=== PATIENT | female | born 1960 | race Caucasian/White ===

== ENCOUNTER 2020-07-13 14:40 | Outpatient (CLI) | payer OTHER, SELFPAY ==
--- NOTE | 2020-07-13 14:41 | MM_ITS ---
WS: [id number] SCREENING DIGITAL MAMMOGRAM WITH CAD HISTORY: SCREENING COMPARISON: 06/09/2019 and 06/08/2018 Bilateral CC and MLO views submitted. Computer aided detection analyzed. Breast composition: There are scattered areas of fibroglandular density. No suspicious masses, microc alcifications or architectural distortion. MM/[id number] IMPRESSION: BI-RADS: 1-Negative FOLLOW UP: 1 Year Follow-up
== END 2020-07-13 14:41 | disposition home or self-care (01) ==
LOC: RADSHAW 14:40
PROVIDERS: PCP Physician Assistant; Visit Provider Obstetrics & Gynecology
DX: Z12.31 Encounter for screening mammogram for malignant neoplasm of breast (principal)
CPT/HCPCS: 77067

== ENCOUNTER 2021-07-31 15:15 | Outpatient (CLI) | payer OTHER, SELFPAY ==
--- NOTE | 2021-07-31 15:19 | MM_ITS ---
WS: [id number] BILATERAL DIGITAL SCREENING MAMMOGRAPHY WITH CAD CLINICAL INFORMATION: SCREENING HISTORY: Screening mammogram. No current complaints. COMPARISON: July 13, 2020 TECHNIQUE: Bilateral CC and MLO views. FINDINGS: Scattered fibroglandular densities bilaterally. No suspicious focal mass, asymmetry, calcifications, or architectural distortion. No evidence of malignancy. A few stable secretory calcifications right b reast. A few punctate calcifications right breast. MM/[place] [id number] IMPRESSION: BI-RADS: 2-Benign FOLLOW UP: 1 Year Follow-up Recommend return to annual screening mammography.
== END 2021-07-31 15:16 | disposition home or self-care (01) ==
LOC: RADSHAW 15:18
PROVIDERS: PCP Physician Assistant; Visit Provider Physician Assistant
DX: Z12.31 Encounter for screening mammogram for malignant neoplasm of breast (principal)
CPT/HCPCS: 77067

== ENCOUNTER → 2021-11-13 15:04 | Outpatient (BNVA) | payer OTHER, SELFPAY | PROVIDERS: PCP Physician Assistant; Visit Provider Nurse Practitioner Women's Health | DX: Z01.419 Encounter for gynecological examination (general) (routine) without abnormal findings (principal) | CPT/HCPCS: 87624 ==

== ENCOUNTER 2022-02-05 11:17 | Outpatient (CLI) | payer OTHER, SELFPAY ==
[2022-02-05 13:18] LABS: Basophils % 0.4 %; Eosinophils # 0.1 10^3/uL (0.0-0.8); Eosinophils % 2.3 %; Hematocrit 43.7 % (37.0-47.0); Hemoglobin 14.3 g/dL (11.5-15.3); Lymphocytes % 21.9 %; Mean Corpuscular HGB Conc 32.7 g/dL (30.0-36.0); Mean Corpuscular Hemoglobin 30.6 pg (28.0-34.0); Mean Corpuscular Volume 93.6 fl (81-99); Mean Platelet Volume 12.1 fL (7.4-10.4); Monocytes # 0.4 10^3/uL (0.2-0.9); Monocytes % 8.9 %; Neutrophils # 3.11 10^3/uL (1.8-7.7); Neutrophils % 66.3 %; Nucleated Red Blood Cells % 0 %; Platelet Count 88 10^3/cmm (130-400); Red Blood Count 4.67 10^6/uL (4.1-5.3); Red Cell Distribution Width 13.9 % (12.1-15.1); White Blood Count 4.7 10^3/uL (4.0-10.0)
[2022-02-05 13:49] LABS: Alanine Aminotransferase 63 U/L (0-33); Albumin Level 4.8 g/dL (3.5-5.2); Alkaline Phosphatase 57 IU/L (35-105); Anion Gap 16.7 (5-19); Aspartate Amino Transferase 69 U/L (0-32); Blood Urea Nitrogen 10 mg/dL (6-20); Calcium 10.4 mg/dL (8.5-10.5); Carbon Dioxide 21 mmol/L (22-29); Chloride 106 mmol/L (98-107); Globulin 3.2 g/dL (1.3-4.6); Glomerular Filtration Rate 126.3 mL/min (90-130); Glucose 94 mg/dL (65-115); Lactate Dehydrogenase 188 U/L (135-214); Osmolality Calculated 289 mOsm/kg (285-295); Potassium 3.7 mmol/L (3.5-5.1); Sodium 140 mmol/L (136-145); Thyroid Stimulating Hormone 1.23 uIU/mL (0.27-4.20); Total Bilirubin 0.5 mg/dL (0.15-1.2); Vitamin B12 454 pg/mL (232-1245)
[2022-02-05 13:55] LABS: Erythrocyte Sedimentation Rate 18 mm/hr (0-15); LAB Peripheral Smear Sent for Review
[2022-02-05 13:59] LABS: Hepatitis A Antibody IgM Non-Reactive (Nonreactive); Hepatitis B Core AB, Total Non-Reactive (Nonreactive); Hepatitis B Surface AB 3.5 (11.5-1000); Hepatitis B Surface Antigen Non-Reactive (Nonreactive); Hepatitis C Virus Antibody Non-Reactive (Nonreactive)
--- NOTE | 2022-02-05 15:54 | ONC CON_ITS ---
Dr. Montero New Patient Note Patient: Catina Reeves Unit #: [id number]: [id number] Dicatated By: Jun Montero M.D.Date of Visit: Feb 05, 2022 Onc MED New Patient/Consult Referring Physician: Keya HERRING Chief Complaint: Thrombocytopenia. History of Present Illness: This is a 61-year-old woman with mild thrombocytopenia. She has hypertension and hyperlipidemia. She has been in good general health. She recently had a follow-up visit with Avis Dior at [facility]. Her laboratory studies from 01/23/2022 included CBC which showed normal hemoglobin at 14.5 g with hematocrit 43.3%. The white blood cell count was borderline low at 4100. The differential showed 63% granulocytes, 26% lymphocytes, and 7% monocytes. The platelet count was mildly decreased at 82,000. Comprehensive metabolic profile showed normal renal function with BUN 11.0 and creatinine 0.6 mg/dL. The SGOT and SGPT were mildly elevated at 60/46 U/L and 73/69 U/L respectively. The alkaline phosphatase was normal at 52.0 U/L and the bilirubin was normal at 0.7 mg/dL. She says she feels fine, though she has been a little tired. She still has normal activity. ECOG score is 0. Her appetite has been good and her weight has been stable. She has not had fever or night sweats. She does have hot flashes. She has not had sore mouth or throat. She occasionally has cough in the morning. She does not complain of shortness of breath or chest pain. She has no GI complaints other than occasional heartburn, which he manages with Tums. She has some mild stress incontinence. She sometimes has joint pain, mainly in her hands or knees. She recently has been treated for tendinitis in the right arm and hand. She does not complain of headache or dizziness, and she has no focal neurologic symptoms. She has had no abnormal bruising or other bleeding manifestations. Past Medical History: Her medical history includes degenerative arthritis, hyperlipidemia, and hypertension. Past Surgical History: Her surgical/procedural history includes tonsillectomy, colonoscopy in 2017, bilateral carpal tunnel release in 2016, left salpingoopherectomy in 2000, and uterine myomectomy in 1998. Medications: Lipitor 1 Tablet (of 40 mg) Oral at bedtime, Lisinopril-hydroCHLOROthiazide 1 Tablet (of 20-12.5 mg) Oral daily, Meloxicam 1 Tablet (of 15 mg) Oral daily, Prempro 1 Tablet (of 0.625-2.5 mg) Oral daily Allergies: Erythromycin, Penicillins, Percocet, predniSONE, and Sulfa Antibiotics. Social History: Ms. Reeves is . Ms. Reeves has never smoked. She drinks occasionally. 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. She is a non-smoker. She has had just very occasional alcohol use. Family History: Father had colon cancer. He at age 83, apparently from a preoperative blood clot to his brain. Mother at age 81, possibly of colon cancer, though it was not determined with certainty. A sister had diabetes and of heart attack. Review Of Symptoms: Constitutional - She feels fine, though she is a little tired. She has normal activity. Appetite is good and weight is stable. No fever or night sweats. She has hot flashes. ECOG score is 0, Eyes - No change in vision, ENMT - No sinus congestion/drainage. No mouth sores. No sore throat or difficulty swallowing, Hematologic/Lymphatic - No abnormal bruising or bleeding, Respiratory - No shortness of breath. She occasionally has cough in the morning. No pleuritic pain or hemoptysis, Cardiovascular - No angina pain. No palpitations, Gastrointestinal - No nausea or vomiting. She occasionally has heartburn. No diarrhea or constipation. No blood in the stool or black stools, Genitourinary (F) - No dysuria or hematuria. No urinary frequency or urgency. She has mild stress incontinence, Musculoskeletal - She has mild joint pain, mainly in the hands. She recently had treatment for tendinitis in the right arm and hand, Integumentary - No skin rash or other skin changes, Neurologic - No headache or dizziness. No numbness or tingling. No other focal neurologic symptoms, Psychiatric - No anxiety or depression. No insomnia. Vital Signs: Performed on Feb 05, 2022 15:47: 3, 0, 38.12 (HIGH), 2.15 sq.m, 66 in, 96 %, 82 /min, 16 /min, 189/78 mm(hg) (HIGH), 98.5 F, and 236.2 lbs (HIGH). Physical Examination: Constitutional - She appears to be in good general health, Eyes - Sclerae nonicteric. Conjunctivae clear, ENMT - No lesions noted in the oral cavity, Neck - No mass or thyromegaly, Hematologic/Lymphatic - No cervical, clavicular, or axillary adenopathy, Respiratory - Lungs are clear with good air movement bilaterally, Cardiovascular - Heart rhythm is regular. There is a II/ systolic murmur. There is no gallop or rub noted, Abdomen - Mildly distended but soft. Liver and spleen do not appear enlarged. There is no abdominal mass or ascites noted and there is no inguinal adenopathy, Back/Spine - No spine or CVA tenderness noted, Extremities - No edema. Pedal pulses are palpable bilaterally, Integumentary - No rashes. No suspicious skin lesions noted, Neurologic - No focal neurologic deficits noted. Problem List: 1. Mild thrombocytopenia. Etiology uncertain. 2. Hypertension. 3. Hyperlipidemia. 4. Mild degenerative joint disease. Problems Addressed with this Encounter and Plan: Patient with mild thrombocytopenia. At this point the cause is uncertain. Platelet clumping would first need to be excluded. If she is confirmed to have thrombocytopenia, my main concern with her liver enzymes being mildly elevated is the possibility of underlying liver disease/hypersplenism. Low-grade autoimmune thrombocytopenia is another possibility and an early stage of myelodysplastic syndrome would also have to be considered. Medication induced thrombocytopenia is unlikely, but possible. The laboratory findings reviewed with the patient and we discussed the clinical implications. She will have additional laboratory studies today which will include CBC, comprehensive metabolic profile, sed rate, DONALD screen, TSH level, LDH level, B12 level, and a viral hepatitis profile. I will review the blood smear. She will have further evaluation as indicated. Signed By: Jun Montero M.D. <<Signature on File>>
[2022-02-06 16:27] LABS: Anti-Nuclear Antibody Screen NEGATIVE (NEGATIVE)
== END 2022-02-05 11:18 | disposition home or self-care (01) ==
PROVIDERS: PCP Physician Assistant; Visit Provider Internal Medicine Medical Oncology
DX: D69.6 Thrombocytopenia, unspecified (principal); I10 Essential (primary) hypertension; E78.5 Hyperlipidemia, unspecified; Z79.899 Other long term (current) drug therapy
CPT/HCPCS: 36415; 80053; 82607; 83615; 84443; 85025; 85651; 86038; 86705; 86706; 86709; 86803; 87340

== ENCOUNTER 2022-03-03 11:56 | Outpatient (CLI) | payer OTHER, SELFPAY ==
--- NOTE | 2022-03-03 12:09 | CT_ITS ---
WS: [id number] CT ABDOMEN PELVIS TECHNIQUE: Contrast-enhanced CT of the abdomen and pelvis with coronal and sagittal reformatted image s. CLINICAL INFORMATION: THROMBOCYTOPENIA COMPARISON: None. DLP: 1516.[address] scans at [facility] use at least one of these dose optimization techniques: automated e xposure control; mA and/or kV adjustment per patient size (includes targeted exams where dose is matc hed to clinical indication); or iterative reconstruction. FINDINGS: Hepatomegaly with diffuse fatty infiltration liver. Normal portal vein and splenic vein. Splenomegaly measuring 15.6 cm [id number]. Small esophageal hiatal hernia. Lung bases are well aerated. Small o pacity RIGHT lower lobe measuring 5.6 mm. Adrenal glands are normal. Normal renal parenchymal enhance ment. No hydronephrosis. Normal pancreatic parenchymal enhancement. Gallbladder appears normal. Tiny bilateral renal cysts. Tiny enhancing exophytic lesion lower pole LEFT kidney too small to characteri ze but not definitely cystic measuring 9 mm. No abdominal or pelvic lymphadenopathy. Normal caliber abdominal aorta. Celiac and SMA are patent. Disc space narrowing L5-S1. Normal sigmoid colon. No evidence of high-grade small or large bowel obstruction. Enlarged lobulated fibroid uterus measuring 11.5 x 9.0 x 8.1 CM. Compression along the dorsal aspect of the bladder. CT/CT abdomen pelvis w con* [id number] IMPRESSION: 1. Hepatomegaly with diffuse fatty infiltration of the liver 2. Splenomegaly measuring 15.6 cm [id number].. 3. Small esophageal hiatal hernia. 4. Heterogeneously enhancing exophytic lesion lower pole LEFT kidney measuring 9.6 mm too small to definitively characterize. Recommend 6 month interval foll ow-up with contrast-enhanced CT abdomen pelvis. 5. Lobulated markedly enlarged fibroid uterus with multiple calcified fibroids . Compression on the adjacent dorsal aspect of the bladder. 6. Small opacity RIGHT lower lobe measuring 5.6 mm. Recommend [address] follow-up.
[2022-03-03] MEDS: iohexol 300 mg/mL 50 mL Btl PO (12:16)
[2022-03-03] MEDS: iohexol 300 mg/mL 100 mL Btl IV (12:17)
== END 2022-03-03 11:57 | disposition home or self-care (01) ==
PROVIDERS: PCP Physician Assistant; Visit Provider Internal Medicine Medical Oncology
DX: D69.6 Thrombocytopenia, unspecified (principal); R16.0 Hepatomegaly, not elsewhere classified; K76.0 Fatty (change of) liver, not elsewhere classified; R16.1 Splenomegaly, not elsewhere classified; K44.9 Diaphragmatic hernia without obstruction or gangrene; D25.9 Leiomyoma of uterus, unspecified
CPT/HCPCS: 74177

== ENCOUNTER 2022-08-05 07:55 | Outpatient (CLI) | payer SELFPAY ==
[2022-08-05 08:41] LABS: Basophils % 0.5 %; Eosinophils # 0.1 10^3/uL (0.0-0.8); Eosinophils % 2.8 %; HF Add Manual Diff No; Hematocrit 43.8 % (37.0-47.0); Hemoglobin 14.4 g/dL (11.5-15.3); Lymphocytes % 26.7 %; Mean Corpuscular HGB Conc 32.9 g/dL (30.0-36.0); Mean Corpuscular Hemoglobin 31.5 pg (28.0-34.0); Mean Corpuscular Volume 95.8 fl (81-99); Mean Platelet Volume 12.7 fL (7.4-10.4); Monocytes # 0.3 10^3/uL (0.2-0.9); Monocytes % 7.4 %; Neutrophils # 2.43 10^3/uL (1.8-7.7); Neutrophils % 62.3 %; Nucleated Red Blood Cells % 0 %; Platelet Count 69 10^3/cmm (130-400); Red Blood Count 4.57 10^6/uL (4.1-5.3); White Blood Count 3.9 10^3/uL (4.0-10.0)
[2022-08-05 08:57] LABS: Estmated Average Glucose 120; Hemoglobin A1C 5.8 % (4.0-6.0)
[2022-08-05 09:24] LABS: Alanine Aminotransferase 28 U/L (0-33); Albumin Level 4.3 g/dL (3.5-5.2); Alkaline Phosphatase 50 U/L (35-105); Anion Gap 13.3 (5-19); Aspartate Amino Transferase 31 U/L (0-32); Blood Urea Nitrogen 12 mg/dL (6-20); Calcium 9.3 mg/dL (8.5-10.5); Carbon Dioxide 22 mmol/L (22-29); Chloride 109 mmol/L (98-107); Chol HDL Ratio 3.86 mg/dL (0.0-4.40); Cholesterol 143 mg/dL (0-200); Globulin 2.6 g/dL (1.3-4.6); Glomerular Filtration Rate 102.3 mL/min (90-130); Glucose 90 mg/dL (65-115); HDL Cholesterol 37 mg/dL (60-100); LDL Cholesterol Calculated 85 mg/dL (50-129); Osmolality Calculated 289 mOsm/kg (285-295); Potassium 4.3 mmol/L (3.5-5.1); Sodium 140 mmol/L (136-145); Total Bilirubin 0.6 mg/dL (0.15-1.2); Total Protein 6.9 g/dL (6.6-8.7); Triglycerides 104 mg/dL (0-150)
[2022-08-05 09:25] LABS: 25 Hydroxy Vitamin D 30 ng/mL (30-100); Thyroid Stimulating Hormone 1.46 uIU/mL (0.27-4.20)
== END 2022-08-05 07:56 | disposition home or self-care (01) ==
PROVIDERS: Visit Provider Dermatology
DX: Z01.89 Encounter for other specified special examinations (principal)
CPT/HCPCS: 36415

== ENCOUNTER 2022-08-27 15:18 | Outpatient (CLI) | payer OTHER, SELFPAY ==
--- NOTE | 2022-08-27 15:30 | MM_ITS ---
WS: [id number] BILATERAL 3D TOMOSYNTHESIS DIGITAL SCREENING MAMMOGRAPHY WITH CAD CLINICAL INFORMATION: SCREENING HISTORY: Screening mammogram. No current complaints. COMPARISON: July 31, 2021 TECHNIQUE: Bilateral CC and MLO views. FINDINGS: Scattered fibroglandular densities bilaterally. No suspicious focal mass, asymmetry, calcifications, or architectural distortion. No evidence of malignancy. Incidental punctate calcifications RIGHT grea ter than LEFT. MM/[place] [id number] IMPRESSION: BI-RADS: 2-Benign FOLLOW UP: 1 Year Follow-up Recommend return to annual screening mammography.
== END 2022-08-27 15:19 | disposition home or self-care (01) ==
LOC: RAD 15:22
PROVIDERS: PCP Physician Assistant; Visit Provider Nurse Practitioner Women's Health
DX: Z12.31 Encounter for screening mammogram for malignant neoplasm of breast (principal)
CPT/HCPCS: 77063; 77067

== ENCOUNTER 2022-09-19 11:15 | Outpatient (RCR) | payer OTHER, SELFPAY | END 2022-09-22 23:59 | disposition home or self-care (01) | LOC: SPT 11:15 | PROVIDERS: PCP Physician Assistant; Visit Provider Physician Assistant | DX: M25.511 Pain in right shoulder (principal); M75.101 Unspecified rotator cuff tear or rupture of right shoulder, not specified as traumatic | CPT/HCPCS: 97161 ==

== ENCOUNTER 2022-09-23 06:00 | Outpatient (RCR) | payer OTHER, SELFPAY | END 2022-10-22 23:59 | disposition home or self-care (01) | LOC: SPT 06:00 | PROVIDERS: PCP Physician Assistant; Visit Provider Physician Assistant | DX: M75.81 Other shoulder lesions, right shoulder (principal) | CPT/HCPCS: 97110 ==

== ENCOUNTER 2022-10-23 06:00 | Outpatient (RCR) | payer OTHER, SELFPAY | END 2022-11-22 23:59 | disposition home or self-care (01) | LOC: SPT 06:00 | PROVIDERS: PCP Physician Assistant; Visit Provider Physician Assistant | DX: M75.81 Other shoulder lesions, right shoulder (principal); M75.101 Unspecified rotator cuff tear or rupture of right shoulder, not specified as traumatic | CPT/HCPCS: 97110 ==

== ENCOUNTER 2022-10-27 02:04 | Emergency (ER) | payer OTHER, SELFPAY ==
[2022-10-27 02:06] VITALS: BP 163/89; PULSE 59; RESP 16; TEMP 36.5; O2SAT 97
--- NOTE | 2022-10-27 02:18 | CTR_ITS ---
PROCEDURE INFORMATION: Exam: CT Abdomen And Pelvis With Contrast Exam date and time: 10/27/2022 3:02 AM Age: 62 years old Clinical indication: Abdominal pain; Localized; Left lower quadrant (llq); Prior surgery; Surgery type: Left ovary, uterine fibroid; Additional info: Llq abd pain TECHNIQUE: Imaging protocol: Computed tomography of the abdomen and pelvis with contrast. Radiation optimization: All CT scans at this facility use at least one of these dose optimization techniques: automated exposure control; mA and/or kV adjustment per patient size (includes targeted exams where dose is matched to clinical indication); or iterative reconstruction. Contrast material: OMNI 350; Contrast volume: 100 ml; Contrast route: INTRAVENOUS (IV); COMPARISON: CT abdomen pelvis w con* [id number] 03/03/2022 1:01 PM RADIATION DOSE METRICS: Total DLP (mGy-cm): 631.51 FINDINGS: Liver: Normal. No mass. Gallbladder and bile ducts: Enlarged greater than or equal to 5.0 cm transverse diameter gallbladder consistent with gallbladder hydrops. Pancreas: Normal. No ductal dilation. Spleen: Normal. No splenomegaly. Adrenal glands: Normal. No mass. Kidneys and ureters: Normal. No hydronephrosis. Stomach and bowel: Unremarkable. No obstruction. No mucosal thickening. Appendix: Normal appendix. Intraperitoneal space: Unremarkable. No free air. No significant fluid collection. Vasculature: Calcification of the abdominal aorta and/or iliac arteries consistent with atherosclerotic vessel disease. Lymph nodes: Unremarkable. No enlarged lymph nodes. Urinary bladder: Unremarkable as visualized. Reproductive: One or more calcified uterine fibroids. Enlarged uterus with multiple partially calcified nodular uterine lesions most consistent with uterine fibroids. Bones/joints: Unremarkable. No acute fracture. Soft tissues: Unremarkable. CT/CT abdomen pelvis w con* [id number] IMPRESSION: 1. Enlarged uterus with multiple partially calcified nodular uterine lesions most consistent with uterine fibroids. 2. Enlarged greater than or equal to 5.0 cm transverse diameter gallbladder consistent with gallbladder hydrops.
--- NOTE | 2022-10-27 02:23 | USR_ITS ---
PROCEDURE INFORMATION: Exam: US Nonobstetric Pelvis; Complete Exam date and time: 10/27/2022 2:36 AM Age: 62 years old Clinical indication: Pelvic pain; Prior surgery; Surgery date: 6+ months; Surgery type: Lt oophorectomy; Additional info: Left pelvic pain, vaginal bleeding TECHNIQUE: Imaging protocol: Transabdominal pelvic nonobstetric ultrasound. Complete exam. Real time ultrasound with image documentation. COMPARISON: CT abdomen pelvis w con* [id number] 03/03/2022 1:01 PM FINDINGS: Uterus: Enlarged 16.4 x 3.0 x 8.3 cm uterus. Multiple uterine fibroids some of which appear calcified with posterior shadowing. Endometrial stripe not visualized because of multiple uterine fibroids, some of which appear submucosal. Right ovary/adnexa: 1.8 x 1.7 x 1.3 cm right ovary with perfusion. Left ovary/adnexa: Absent left ovary consistent with left oophorectomy. Intraperitoneal space: No intraperitoneal fluid. Urinary bladder: Normal. US/US pelvic complete* [id number] IMPRESSION: 1. Enlarged 16.4 x 3.0 x 8.3 cm uterus. 2. Multiple uterine fibroids some of which appear calcified with posterior shadowing. 3. Absent left ovary consistent with left oophorectomy. 4. 1.8 x 1.7 x 1.3 cm right ovary with perfusion.
[2022-10-27] MEDS: morphine 4 mg/mL SDV 1 mL IVP (02:47)
[2022-10-27] MEDS: ondansetron 2 mg/ML SDV 2 mL 4 MG IVP (02:47)
[2022-10-27] MEDS: sodium chloride 0.9% 1,000 ML 999 ML IV (02:48)
[2022-10-27 02:50] LABS: Basophils % 0.3 %; Eosinophils # 0.1 10^3/uL (0.0-0.8); Eosinophils % 1.6 %; Hematocrit 45.4 % (37.0-47.0); Hemoglobin 14.7 g/dL (11.5-15.3); Lymphocytes # 1.1 10^3/uL (0.8-4.8); Lymphocytes % 16.4 %; Mean Corpuscular HGB Conc 32.4 g/dL (30.0-36.0); Mean Corpuscular Hemoglobin 31.3 pg (28.0-34.0); Mean Corpuscular Volume 96.6 fl (81-99); Mean Platelet Volume 11.5 fL (7.4-10.4); Monocytes # 0.4 10^3/uL (0.2-0.9); Monocytes % 5.6 %; Neutrophils # 5.25 10^3/uL (1.8-7.7); Nucleated Red Blood Cells % 0 %; Platelet Count 98 10^3/cmm (130-400); Red Cell Distribution Width 12.7 % (12.1-15.1); White Blood Count 6.9 10^3/uL (4.0-10.0)
--- NOTE | 2022-10-27 02:56 | ED_ITS ---
HPI - Abdominal Pain General: Chief Complaint: Abdominal Pain Stated Complaint: lower abdomen pain Time Seen by Provider: 10/27/22 02:16 History of Present Illness: 62-year-old female with a history of hypertension. She presents with left-sided pelvic pain and an onset of vaginal bleeding. She has noticed this over the past 24 hours or so. She had not had any vaginal bleeding or. Bleeding for several years prior to this. No other discharge. She has been told in the past that she has endometrial disease. MD elicited complaint: abdominal pain Pertinent past history: other Onset (ago): hour(s) Pain Consistency: constant Location: Pelvis (Left) Severity: moderate Quality: cramping and stabbing Radiation: L flank Migration to: no migration Associated Symptoms: Denies change in stool character, chills, diarrhea, dysuria, fever(s), hematochezia, hematuria, loose stools and vomiting Review of Systems Const: Denies: fever(s) or chills Eyes: Denies: change in vision Card: Denies: chest pain or palpitations Resp: Denies: dyspnea, productive cough, non-productive cough or wheezing GI: Denies: vomiting, diarrhea, change in stool character or hematochezia : Reports: vaginal bleeding; Denies: difficulty voiding, dysuria, hematuria or vaginal discharge Skin/Breast: Denies: rash Neuro: Denies: headache(s), weakness in extremities, dizziness or confusion PFSH ED 2 PFSH: Medical History Hyperlipemia Hypertension, benign No pertinent past medical history neghx: dm,thyroid,dvt/pe PCP: Avis Dior Surgical History History of carpal tunnel surgery of left wrist (~08/2016) History of carpal tunnel surgery of right wrist (~10/2012) History of left salpingo-oophorectomy (01/18/02) Laparoscopic with extensive ROMERO. Performed by Dr. Carreno at [facility] in [place], [place]. S/P myomectomy (07/15/99) Abdominal. Performed by Dr. Guzman at [facility] in [place], [place]. 3 fibroids removed (largest 10 cm). S/P tonsillectomy and adenoidectomy (~1968) Family History Sister Diabetes Hypertension Thyroid disease Heart disease Mother Hypertension Thyroid disease Colon cancer dx age 82 Grandmother Ovarian cancer Maternal---dx age unknown Breast cancer Maternal--dx age unknown Uterine cancer Maternal--dx age unknown Father Colon cancer dx age 85 Heart disease Family/Other Breast cancer Paternal Aunt--dx age unknown Denies family history of Stroke Social History Smoking and tobacco status: never smoked Physical Exam Const: COMMON NORMALS: no acute distress GENERAL APPEARANCE: cooperative; not ill appearing and not frail appearing HENMT: COMMON NORMALS: normocephalic, atraumatic and Normal external nose present HEAD & SCALP: normocephalic and atraumatic FACE & SINUS: normal facial exam and face symmetric NOSE: Normal external nose present Eye: COMMON NORMALS: Equal, round and reactive pupils present and EOMs intact bilaterally PUPIL: Yes Equal, round and reactive pupils present Neck/C-Spine: GENERAL: Yes trachea midline Chest: CHEST: Yes Symmetrical chest wall rise Resp: COMMON NORMALS: normal respiratory effort, No retractions, No use of a ccessory muscles and clear to auscultation bilaterally AUSCULTATION: clear to auscultation bilaterally Cardio: COMMON NORMALS: regular rate and regular rhythm RATE: regular rate RHYTHM: regular rhythm GI: COMMON NORMALS: Normal to inspection, nondistended, normoactive bowel sounds present PALPATION: Yes Tenderness to palpation present (GI) Details: LLQ Extremity: COMMON NORMALS: no pedal edema Neuro: IRMA COMA SCALE: document GCS findings [place] coma scale eye opening: Spontaneous [place] coma scale verbal response: Orientated [place] coma scale motor response: Obey commands [place] coma scale total score: 15 SENSORY EXAM: Yes extremities (intact) Psych: COMMON NORMALS: speech normal SPEECH: Yes normal speech Skin: COMMON NORMALS: no rashes or lesions noted GENERAL SKIN EXAM: no rashes or lesions noted Course Vital Signs: Vital signs: Vital Signs Temperature 97.7 F 10/27/22 02:06 Pulse Rate 59 L 10/27/22 02:06 Respiratory Rate 16 10/27/22 02:06 Blood Pressure 163/89 10/27/22 02:06 Pulse Oximetry 97 12/05/22 02:06 Oxygen Delivery Me thod 10/27/22 02:06 MDM - Abdominal Pain Medical Decision Making 62-year-old female with left lower quadrant pain and vaginal bleeding. She has a history of thrombocytopenia evidently. Her platelet count is 98. Her hemoglobin is 14.7 white blood cell count is 6.9 her CRP is only 3. CT reveals an enlarged uterus with multiple fibroids. Ultrasound reveals the same. She is having some vaginal bleeding. We will hold her Prempro for now, place her on progesterone for 5 days to stop bleeding. She was counseled that she may have a withdrawal bleed following this. An outpatient referral to gynecology. She will likely need an endometrial biopsy given the bleeding. Lab Data 10/27/22 02:42 10/27/22 02:42 Labs/Radiology: Radiology Impressions Abdomen/Pelvis CT 10/27/22 02:18 IMPRESSION: 1. Enlarged uterus with multiple partially calcified nodular uterine lesions most consistent with uterine fibroids. 2. Enlarged greater than or equal to 5.0 cm transverse diameter gallbladder consistent with gallbladder hydrops. Pelvis Ultrasound 10/27/22 02:23 IMPRESSION: 1. Enlarged 16.4 x 3.0 x 8.3 cm uterus. 2. Multiple uterine fibroids some of which appear calcified with posterior shadowing. 3. Absent left ovary consistent with left oophorectomy. 4. 1.8 x 1.7 x 1.3 cm right ovary with perfusion. Laboratory Results WBC 6.9 10^3/uL (4.0-10.0) 10/27/22 02:42 RBC 4.70 10^6/uL (4.1-5.3) 10/27/22 02:42 Hgb 14.7 g/dL (11.5-15.3) 10/27/22 02:42 Hct 45.4 % (37.0-47.0) 10/27/22 02:42 MCV 96.6 fl (81-99) 10/27/22 02:42 MCH 31.3 pg (28.0-34.0) 10/27/22 02:42 MCHC 32.4 g/dL (30.0-36.0) 10/27/22 02:42 RDW 12.7 % (12.1-15.1) 10/27/22 02:42 Plt Count 98 10^3/cmm (130-400) L 10/27/22 02:42 MPV 11.5 fL (7.4-10.4) H 10/27/22 02:42 Neut % (Auto) 76.0 % 10/27/22 02:42 Lymph % (Auto) 16.4 % 10/27/22 02:42 [place] % (Auto) 5.6 % 10/27/22 02:42 Eos % (Auto) 1.6 % 10/27/22 02:42 Baso % (Auto) 0.3 % 10/27/22 02:42 Neut # (Auto) 5.25 10^3/uL (1.8-7.7) 10/27/22 02:42 Lymph # (Auto) 1.1 10^3/uL (0.8-4.8) 10/27/22 02:42 [place] # (Auto) 0.4 10^3/uL (0.2-0.9) 10/27/22 02:42 Eos # (Auto) 0.1 10^3/uL (0.0-0.8) 10/27/22 02:42 Baso # (Auto) 0.0 10^3/uL (0.0-0.1) 10/27/22 02:42 Nucleated RBC % (auto) 0 % 10/27/22 02:42 Nucleated RBCs # 0.0 /100WBC 10/27/22 02:42 Sodium 134 mmol/L (136-145) L 10/27/22 02:42 Potassium 3.6 mmol/L (3.5-5.1) 10/27/22 02:42 Chloride 100 mmol/L (98-107) 10/27/22 02:42 Carbon Dioxide 24 mmol/L (22-29) 10/27/22 02:42 Anion Gap 13.6 (5-19) 10/27/22 02:42 BUN 19 mg/dL (8-23) 10/27/22 02:42 Creatinine 0.7 mg/dL (0.5-0.9) 10/27/22 02:42 GFR Calculation 85.4 mL/min (90-130) L 10/27/22 02:42 Glucose 102 mg/dL (65-115) 10/27/22 02:42 Calculated Osmolality 280 mOsm/kg (285-295) L 10/27/22 02:42 Calcium 10.5 mg/dL (8.5-10.5) 10/27/22 02:42 Total Bilirubin 0.8 mg/dL (0.15-1.2) 10/27/22 02:42 AST 38 U/L (0-32) H 10/27/22 02:42 ALT 36 U/L (0-33) H 10/27/22 02:42 Alkaline Phosphatase 54 U/L (35-105) 10/27/22 02:42 C-Reactive Protein 3.0 mg/L (0.0-4.9) 10/27/22 02:42 Total Protein 7.5 g/dL (6.6-8.7) 10/27/22 02:42 Albumin 4.5 g/dL (3.5-5.2) 10/27/22 02:42 Globulin 3.0 g/dL (1.3-4.6) 10/27/22 02:42 Lipase 35 U/L (13-60) 10/27/22 02:42 Urine Color Yellow (Yellow) 10/27/22 03:44 Urine Appearance Hazy (CLEAR) A 10/27/22 03:44 Urine pH 5 (5-7) 10/27/22 03:44 Ur Specific [place] 1.015 (1.005-1.030) 10/27/22 03:44 Urine Protein Neg (Negative) 10/27/22 03:44 Urine Glucose (UA) Norm (Normal) 10/27/22 03:44 Urine Ketones Negative (Negative) 10/27/22 03:44 Urine Blood 3+ (Negative) H 10/27/22 03:44 Urine Nitrate Negative (Negative) 10/27/22 03:44 Urine Bilirubin Neg (Negative) 10/27/22 03:44 Urine Urobilinogen Neg mg/dL (Negative) 10/27/22 03:44 Ur Leukocyte Esterase Negative (Negative) 10/27/22 03:44 Urine RBC Too numerous to cnt /hpf (0-2) H 10/27/22 03:44 Urine WBC 5-10 /hpf (0-5) H 10/27/22 03:44 Ur Squamous Epith Cells 5-10 /hpf (0-5) H 10/27/22 03:44 Amorphous Sediment Not Reportable 10/27/22 03:44 Urine Bacteria 1+ /hpf (NONE) H 10/27/22 03:44 Discharge Plan Discharge Patient Disposition: Home Clinical Impression: Endometriosis, Abdominal pain, acute, left lower quadrant, Vaginal bleeding Condition: Stable Prescriptions: New medroxyprogesterone [Provera] 10 mg tablet 10 mg PO DAILY 5 Days Qty: 5 0RF Rx Instructions: begin day 21 of cycle hydrocodone-acetaminophen 5-325 mg tablet 1 tab PO Q8H PRN (Reason: pain) Qty: 7 0RF Discontinued Prempro 0.625-2.5 mg tablet 1 tab PO DAILY Qty: 90 0RF No Action lisinopril-hydrochlorothiazide 10-12.5 mg tablet 1 tab PO DAILY Label Comments: Patient unsure of dosage. atorvastatin 10 mg tablet 10 mg PO DAILY Label Comments: Patient unsure of dosage diphenhydramine HCl [Benadryl] 25 mg capsule 25 mg PO ONCE PRN sulfamethoxazole-trimethoprim [Bactrim DS] 800-160 mg tablet 1 tab PO BID 10 Days Qty: 20 0RF pseudoephedrine HCl 30 mg tablet 30 mg PO Q6H PRN (Reason: nasal congestion) Qty: 20 0RF Discharge Orders: Discharge ED (Routine); Ordered 10/27/22 Ordered By: Brandon Maria Referrals: Jayy Montes De Oca MD [Physician] - 4-7 days Avis Dior PA [Primary Care Provider] - Patient Instructions: Abdominal Pain (ED), Opioid Safety, Pain Management Activity Restrictions/Additional Instructions: Return for increasing pain despite treatment, vomiting liquids or medications, fever greater than 100, worsening vaginal bleeding soaking a pad an hour for more than 3 hours, any other concerning symptoms. Stop your Prempro for now. Medication as directed. You would likely have a withdrawal bleed after 5 days when your medication runs out. Take ibuprofen 600 mg 3 times daily for the next 5 days as well. Pain medication for severe pain. Case management has been asked to have you follow-up with the women's health clinic. You should get a call Thursday or Thursday regarding an appointment. Coding Level of Care Code ED Mathematics Education Professor for Chg Fwd Exam Comprehensive
[2022-10-27] MEDS: iohexol 350 mg/mL 500 mL Btl (per mL) IV (03:04)
[2022-10-27 03:05] LABS: Alanine Aminotransferase 36 U/L (0-33); Albumin Level 4.5 g/dL (3.5-5.2); Alkaline Phosphatase 54 U/L (35-105); Anion Gap 13.6 (5-19); Aspartate Amino Transferase 38 U/L (0-32); Blood Urea Nitrogen 19 mg/dL (8-23); Calcium 10.5 mg/dL (8.5-10.5); Carbon Dioxide 24 mmol/L (22-29); Chloride 100 mmol/L (98-107); Glomerular Filtration Rate 85.4 mL/min (90-130); Glucose 102 mg/dL (65-115); Lipase 35 U/L (13-60); Osmolality Calculated 280 mOsm/kg (285-295); Potassium 3.6 mmol/L (3.5-5.1); Sodium 134 mmol/L (136-145); Total Bilirubin 0.8 mg/dL (0.15-1.2); Total Protein 7.5 g/dL (6.6-8.7)
[2022-10-27 04:12] LABS: Add Urine Microscopic? YES; Bilirubin Urine Neg (Negative); Blood Urine 3+ (Negative); Glucose Urine UA Norm (Normal); Ketones Urine Negative (Negative); Leukocyte Esterase Urine Negative (Negative); Nitrate Urine Negative (Negative); Protein Urine Neg (Negative); Specific Gravity, Urine 1.015 (1.005-1.030); Urine Appearance Hazy (CLEAR); Urine Color Yellow (Yellow); Urobilinogen Urine Neg (Negative); pH Urine 5 (5-7)
[2022-10-27 04:13] LABS: RBC Urine TOO NUMEROUS TO CNT /hpf (0-2)
[2022-10-27 04:14] LABS: Add Urine Culture? Yes; Bacteria Urine 1+ /hpf
[2022-10-27 05:08] VITALS: BP 149/80; PULSE 70; RESP 18; O2SAT 99
--- NOTE | 2022-10-29 08:56 | DCPLANNER ---
Addendum entered by Mikki Hollis 10/30/22 12:36: Patient had a follow up appointment scheduled for 10.30.22 at [facility] - patient did attend appointment. Original Note: real estate leasing manager had message to schedule a follow up appointment for patient with [facility]. real estate leasing manager sent patients information to the front office of [facility]. Patients information will be printed and reviewed. Clinic will call patient with appointment information.
== END 2022-10-27 05:11 | disposition home or self-care (01) ==
PROVIDERS: Emergency Provider Emergency Medicine; PCP Physician Assistant
DX: N80.9 Endometriosis, unspecified (principal); N93.9 Abnormal uterine and vaginal bleeding, unspecified; E72.3 Disorders of lysine and hydroxylysine metabolism; I10 Essential (primary) hypertension
CPT/HCPCS: 74177; 76830; 76856; 80053; 81001; 83690; 85025; 86140; 87086; 96361; 96374; 96375; 99285; J2270; J2405; J7030; Q9967

== ENCOUNTER → 2022-10-30 11:30 | Outpatient (BNVA) | payer OTHER, SELFPAY | PROVIDERS: PCP Physician Assistant; Visit Provider Nurse Practitioner Women's Health | DX: N95.0 Postmenopausal bleeding (principal) | CPT/HCPCS: 87624; 88305 ==

== ENCOUNTER → 2022-12-16 12:33 | Day surgery (SDC) | payer OTHER, SELFPAY ==
[2022-12-15 10:37] VITALS: BMI 36.6
[2022-12-16] VITALS (9 sets, daily range): BP systolic 148–181; BP diastolic 73–95; PULSE 54–78; RESP 17–24; TEMP 36.1–36.3; O2SAT 95–100
[2022-12-16] MEDS: sodium chloride 0.9% 1,000 ML 30 ML IV (13:13)
--- NOTE | 2022-12-16 13:17 | P.ANESASSM_ITS ---
Pre-Anesthetic Assessment Height/Weight: Height 1.68 m Weight 102.965 kg Temp Pulse Resp BP Pulse Ox O2 Del Method 97.3 F L 75 18 172/95 97 12/16/22 12:51 12/16/22 12:51 12/16/22 12:51 12/16/22 12:51 12/16/22 12:51 12/16/22 12:54 Preop Diagnosis: postmenopausal bleeding Operation Date: 12/16/22 14:10 Proposed Procedures p Hysteroscopy, dilation and curettage with Myosure [id number] N95.0(Not Applicable) - Brittani Brown MD s Dilation And Curettage (D&C)(Not Applicable) - Brittani Brown MD Familial anesthetic complications: PONV Was Beta Srinivasan taken within 24 hours: N/A Was Clonidine taken within 24 hours: N/A Last intake: Intake Last Liquid Date 12/16/22 Last Liquid Time 06:00 Last Solid Date 12/15/22 Last Solid Time 21:00 Social No alcohol and No tobacco Exam alert, oriented x 3, clear to auscultation bilaterally and regular rate & rhythm Airway Mallampati: Class III Dentition: other (bridge/crowns (all cemented in)) History/ROS No significant history except as noted CV/HEM Hypertension Metabolic Hyperlipidemia Anesthetic Plan ASA status: 2 Anesthesia: General Risk of > 500 ml blood loss (7ml/kg in children): No Medications/Allergies Home Medications Medication Instructions Recorded Confirmed Last Taken Type atorvastatin 10 mg tablet 10 mg PO DAILY 11/07/20 12/15/22 12/14/22 History diphenhydramine HCl 25 mg capsule 25 mg PO DAILY PRN Allergy Symptoms 11/07/20 12/15/22 Unknown History (Benadryl) lisinopril 10 1 tab PO DAILY 11/07/20 12/15/22 12/15/22 History mg-hydrochlorothiazide 12.5 mg tablet misoprostol 200 mcg tablet 600 mcg PO Q6H #12 tabs 12/12/22 12/15/22 12/16/22 06:00 Rx (Cytotec) conj estrogen-medroxyprogesterone 1 tab PO DAILY 12/15/22 12/15/22 12/15/22 History 0.625 mg-2.5 mg tablet (Prempro) Allergies Allergy/AdvReac Type Severity Reaction Status Date / Time azithromycin AdvReac Intermediate Gastric Verified 12/16/22 12:50 [From Zithromax Z-Esvin] distress Penicillins AdvReac Intermediate red rash Verified 12/16/22 12:50 prednisone AdvReac Intermediate turned her Verified 12/16/22 12:50 red all over Current Medications Generic Name Dose Route Start Last Admin Trade Name Freq PRN Reason Stop Dose Admin Sodium Chloride 1,000 mls @ 30 mls/hr 12/16/22 12:45 12/16/22 13:13 Sodium Chloride 0.9% IV 12/17/22 12:44 30 mls/hr .Q24H CUONG Administration PFSH Anesthesia Medical History Hyperlipemia Hypertension, benign No pertinent past medical history neghx: dm,thyroid,dvt/pe PCP: Avis Dior Surgical History History of carpal tunnel surgery of left wrist (~08/2016) History of carpal tunnel surgery of right wrist (~10/2012) History of left salpingo-oophorectomy (01/18/02) Laparoscopic with extensive ROMERO. Performed by Dr. Carreno at [facility] in [place], [place]. S/P myomectomy (07/15/99) Abdominal. Performed by Dr. Guzman at [facility] [place] in [place], [place]. 3 fibroids removed (largest 10 cm). S/P tonsillectomy and adenoidectomy (~1968) Family History Sister Diabetes Hypertension Thyroid disease Heart disease Mother Hypertension Thyroid disease Colon cancer dx age 82 Grandmother Ovarian cancer Maternal---dx age unknown Breast cancer Maternal--dx age unknown Uterine cancer Maternal--dx age unknown Father Colon cancer dx age 85 Heart disease Family/Other Breast cancer Paternal Aunt--dx age unknown Denies family history of Stroke Data Anesthesia Cardiac Studies: No Data to Display
[2022-12-16] MEDS: scopolamine 1.5 Patch 1 PATCH TRANSDERMA (13:19)
--- NOTE | 2022-12-16 13:57 | W.PM.OPSUD ---
Surgery/Procedure H&P Update DATE OF PROCEDURE: December 16, 2022 DATE H&P PERFORMED: 12/12/22 H&P UPDATE INFORMATION: I have reviewed H&P completed within last 30 days, I have examined patient prior to procedure and No changes to prior documentation PREOP DIAGNOSIS: postmenopausal bleeding PLANNED PROCEDURE: Operation Date: 12/16/22 14:10 Proposed Procedures p Hysteroscopy, dilation and curettage with Myosure [id number] N95.0(Not Applicable) - Brittani Brown MD s Dilation And Curettage (D&C)(Not Applicable) - Brittani Brown MD Related Problem List Diagnoses (1) PMB (postmenopausal bleeding): (2) Enlarged uterus:
[2022-12-16] MEDS: ceFAZolin 2,000 MG in sodium chloride 0.9% (plus) 50 ML 100 MG IV (14:49)
--- NOTE | 2022-12-16 16:07 | P.OP_ITS ---
Operative Report Date of procedure: December 16, 2022 Pre-op diagnosis: Preop Diagnosis postmenopausal bleeding Post-op diagnosis: same Post-op diagnosis: uterine fibroids, uterine polyps Procedure done: hysteroscopy, dilation and curettage with myosure Specimens removed/disposition: endometrial curettings, uterine polyps and fibroids to pathology Surgeon: Brittani Brown Anesthesia: General Estimated blood loss (mL): 10 IV fluids (mL): 700 Complications: none Findings: 12 weeks sized uterus with multiple fibroids and polyps. Several large cervical polyps hysteroscopy deficit 1350 ml Condition: stable Disposition: PACU Procedure: The patient was taken to the operating room where monitored anesthesia was administered and to be adequate. She was prepped and draped in the normal sterile fashion in the dorsal lithotomy position in Danny stirrups. A weighted speculum was placed into the vagina and the anterior lip of the cervix grasped with a single-tooth tenaculum. The uterus was sounded to 12 cm. The cervix was dilated to 16 [place]. The hysteroscope was advanced into the endometrial cavity. There were multiple fibroids and polyps visualized. The MyoSure device was activated and the tissue was removed. Pictures were taken pre and post procedure. All instruments were removed. The patient tolerated the procedure well. Sponge lap and needle counts were correct x3. She was taken to the recovery room in stable condition.
--- NOTE | 2022-12-16 16:15 | PM.DCS ---
Discharge Providers Date of Admission: 12/16/22 Date of Discharge: December 16, 2022 Attending Provider at Discharge: Brittani Brown MD Primary Care Provider: Avis Dior Diagnoses at Discharge Discharge Diagnosis (1) PMB (postmenopausal bleeding): Status: Acute (2) Enlarged uterus: Status: Acute Reason for Visit Reason for Visit: postmenopausal bleeding Hospital Course Hospital Course The patient was admitted for surgery. She did well post procedure and was ready for discharge. Discharge Data Studies Completed and Pending Pending at discharge Category Date Time Status Pathology: Surgical [PTH] Routine Pth 12/16/22 15:47 Received Vitals Last Vital Signs Temp 97 F L 12/16/22 16:00 Pulse 78 12/16/22 16:05 Resp 23 H 12/16/22 16:05 BP 148/82 12/16/22 16:05 Pulse Ox 96 12/16/22 16:05 O2 Del Method 12/16/22 16:05 O2 Flow Rate 8 12/16/22 16:05 Discharge Plan Discharge Patient Disposition: Home Condition: Stable Prescriptions: Continued lisinopril-hydrochlorothiazide 10-12.5 mg tablet 1 tab PO DAILY Label Comments: Patient unsure of dosage. atorvastatin 10 mg tablet 10 mg PO DAILY Label Comments: Patient unsure of dosage diphenhydramine HCl [Benadryl] 25 mg capsule 25 mg PO DAILY PRN (Reason: Allergy Symptoms) misoprostol [Cytotec] 200 mcg tablet 600 mcg PO Q6H Qty: 12 0RF Prempro 0.625-2.5 mg tablet 1 tab PO DAILY Discharge Orders: Discharge Order (Routine); Ordered 12/16/22 Ordered By: Brittani Brown Discharge Attestations Time Spent in Discharge Care*: less than 30 min Quality Metrics Clinical Quality Measures [ No reported AMI, CVA or VTE this stay] Coding Level of Care Code Acute Chg FW DC note Diagnoses PMB (postmenopausal bleeding) N95.0 Enlarged uterus N85.2
[2022-12-16] MEDS: ketorolac 30 mg/mL INJ IVP (16:17)
--- NOTE | 2022-12-16 16:42 | SUR.PHASEI ---
1634 PT ROLLED TO SIDE, SMALL AMT LT PINK DRAINAGE TO PAD AND SHEET, CHUX TO PT OPS NURSE EDOUARD AT [facility], HANDOFF AT BEDSIDE, PT ABDOMEN SOFT, PT TALKATIVE , PT COUGHS OCC , PT INFORMED OF HER INTUBATION IN OR, AND HER THROAT HAD BEEN RED UPON INTUBATION, PT INFORMED SHE MAY HAVE SYMPTOMS OF SORE THOAT, SO COOL LIQUIDS AND COMFORT MEASURES FOR SORE THROAT WILL HELP.
== END | disposition home or self-care (01) ==
PROVIDERS: PCP Physician Assistant; Visit Provider Obstetrics & Gynecology
PROC: 0UDB8ZZ Extraction of Endometrium, Via Natural or Artificial Opening Endoscopic (ICD-10-PCS; CPT 58558; principal; 2022-12-16 14:00)
PROC: (CPT 58120; 2022-12-16 14:00)
DX: N95.0 Postmenopausal bleeding (principal); N85.2 Hypertrophy of uterus; I10 Essential (primary) hypertension; E78.5 Hyperlipidemia, unspecified
CPT/HCPCS: 58558; 88305; J0690; J1100; J1885; J2405; J2704; J3010; J3490; J7030

== ENCOUNTER 2023-01-27 15:58 | Inpatient (IN) | payer OTHER, SELFPAY ==
[2023-01-23 09:22] VITALS: BMI 36.9
[2023-01-23 10:00] LABS: Basophils % 0.7 %; Eosinophils # 0.1 10^3/uL (0.0-0.8); Eosinophils % 2.6 %; Hematocrit 45.4 % (37.0-47.0); Lymphocytes # 1.3 10^3/uL (0.8-4.8); Lymphocytes % 29.4 %; Mean Corpuscular Hemoglobin 31.2 pg (28.0-34.0); Mean Corpuscular Volume 94.4 fl (81-99); Mean Platelet Volume 11.3 fL (7.4-10.4); Monocytes # 0.4 10^3/uL (0.2-0.9); Monocytes % 9.2 %; Neutrophils # 2.64 10^3/uL (1.8-7.7); Neutrophils % 57.9 %; Nucleated Red Blood Cells % 0 %; Platelet Count 101 10^3/cmm (130-400); Red Blood Count 4.81 10^6/uL (4.1-5.3); Red Cell Distribution Width 12.7 % (12.1-15.1); White Blood Count 4.6 10^3/uL (4.0-10.0)
[2023-01-23 10:11] LABS: Anion Gap 16.4 (5-19); Blood Urea Nitrogen 8 mg/dL (8-23); Calcium 9.8 mg/dL (8.5-10.5); Carbon Dioxide 25 mmol/L (22-29); Chloride 101 mmol/L (98-107); Glucose 90 mg/dL (65-115); Osmolality Calculated 284 mOsm/kg (285-295); Potassium 4.4 mmol/L (3.5-5.1); Sodium 138 mmol/L (136-145)
--- NOTE | 2023-01-23 13:46 | P.ANESASSM_ITS ---
Pre-Anesthetic Assessment Height/Weight: Height 1.68 m Weight 103.873 kg Preop Diagnosis: postmenopausal bleeding Operation Date: 01/27/23 10:45 Proposed Procedures p Laparoscopic assisted vaginal hysterectomy, bilateral salpingo-oophorectomy 91620,D25.9,N95.0(Not Applicable) - Brittani Brown MD Familial anesthetic complications: none Was Beta Srinivasan taken within 24 hours: N/A Was Clonidine taken within 24 hours: N/A Social No alcohol and No tobacco Exam alert, oriented x 3, clear to auscultation bilaterally and regular rate & rhythm Airway Submandibular: within normal limits Cervical ROM: within normal limits Mallampati: Class II Dentition: chipped CV/HEM Hypertension Metabolic Hyperlipidemia and Morbid Obesity Anesthetic Plan ASA status: 2 Anesthesia: General Medications/Allergies Home Medications Medication Instructions Recorded Confirmed Last Taken Type atorvastatin 10 mg tablet 10 mg PO DAILY 11/07/20 01/23/23 01/23/23 History lisinopril 10 1 tab PO DAILY 11/07/20 01/23/23 01/23/23 History mg-hydrochlorothiazide 12.5 mg tablet conj estrogen-medroxyprogesterone 1 tab PO DAILY 12/15/22 01/23/23 01/23/23 History 0.625 mg-2.5 mg tablet (Prempro) Allergies Allergy/AdvReac Type Severity Reaction Status Date / Time azithromycin AdvReac Intermediate Gastric Verified 01/23/23 07:54 [From Zithromax Z-Esvin] distress Penicillins AdvReac Intermediate red rash Verified 01/23/23 07:54 prednisone AdvReac Intermediate turned her Verified 01/23/23 07:54 red all over [facility] Anesthesia Medical History Hyperlipemia Hypertension, benign No pertinent past medical history neghx: dm,thyroid,dvt/pe PCP: Avis Dior Surgical History History of carpal tunnel surgery of left wrist (~08/2016) History of carpal tunnel surgery of right wrist (~10/2012) History of left salpingo-oophorectomy (01/18/02) Laparoscopic with extensive ROMERO. [place] [facility] [place] S/P myomectomy (07/15/99) Abdominal. [place] Guzman [place] [facility] [place]. 3 fibroids removed (largest 10 cm). S/P tonsillectomy and adenoidectomy (~1968) Family History Sister Diabetes Hypertension Thyroid disease Heart disease Mother Hypertension Thyroid disease Colon cancer dx age 82 Grandmother Ovarian cancer Maternal---dx age unknown Breast cancer Maternal--dx age unknown Uterine cancer Maternal--dx age unknown Father Colon cancer dx age 85 Heart disease Family/Other Breast cancer Paternal Aunt--dx age unknown Denies family history of Stroke Data Anesthesia 01/23/23 09:35 01/23/23 09:35 Short CBC 01/23/23 Range/Units 09:35 WBC 4.6 (4.0-10.0) 10^3/uL Hgb 15.0 (11.5-15.3) g/dL Hct 45.4 (37.0-47.0) % MCV 94.4 (81-99) fl Plt Count 101 L (130-400) 10^3/cmm Neut % (Auto) 57.9 % Neut # (Auto) 2.64 (1.8-7.7) 10^3/uL BMP 01/23/23 09:35 Sodium 138 Potassium 4.4 Chloride 101 Carbon Dioxide 25 BUN 8 Creatinine 0.6 Glucose 90 Calcium 9.8 Cardiac Studies: No Data to Display
[2023-01-27] VITALS (19 sets, daily range): BP systolic 96–149; BP diastolic 63–98; PULSE 60–78; RESP 15–22; TEMP 36.1–36.9; O2SAT 94–100
--- NOTE | 2023-01-27 09:24 | P.ANESUD_ITS ---
Pre-Anesthetic Update Pre-Anesthetic Assessment: Date of Surgery/Procedure: 01/27/23 Preop Ivana gnosis: enlarged uterus, pmb Proposed Procedure: Operation Date: 01/27/23 10:45 Proposed Procedures p Laparoscopic assisted vaginal hysterectomy, bilateral salpingo-oophorectomy 08514,D25.9,N95.0(Not Applicable) - Brittani Brown MD Any changes to Pre-Anesthetic Assessment?: No Last Intake: > 8hrs Exam: Pre-Anes Outpt Exam: alert, oriented x 3, clear to auscultation bilaterally and regular rate & rhythm Cardiac Studies: No Data to Display
[2023-01-27] MEDS: sodium chloride 0.9% 1,000 ML 30 ML IV (09:46)
--- NOTE | 2023-01-27 09:46 | W.PM.OPSUD ---
Surgery/Procedure H&P Update DATE OF PROCEDURE: January 27, 2023 DATE H&P PERFORMED: 01/23/23 H&P UPDATE INFORMATION: I have reviewed H&P completed within last 30 days, I have examined patient prior to procedure and No changes to prior documentation PREOP DIAGNOSIS: enlarged uterus, pmb PLANNED PROCEDURE: Operation Date: 01/27/23 10:45 Proposed Procedures p Laparoscopic assisted vaginal hysterectomy, bilateral salpingo-oophorectomy 80030,D25.9,N95.0(Not Applicable) - Brittani Brown MD Related Problem List Diagnoses (1) Enlarged uterus: (2) PMB (postmenopausal bleeding):
[2023-01-27] MEDS: acetaminophen 1,000 MG/100 ML PIGGYBACK 400 MG IV (09:47)
[2023-01-27] MEDS: CELEcoxib 200 mg Capsule 400 MG PO (09:48)
[2023-01-27] MEDS: scopolamine 1.5 Patch 1 PATCH TRANSDERMA (09:48)
[2023-01-27] MEDS: gabapentin 300 mg Capsule PO (09:49)
[2023-01-27] MEDS: phenazopyridine 100 mg Tablet 200 MG PO ×2 (09:49→21:35)
[2023-01-27] MEDS: ceFAZolin 2,000 MG in sodium chloride 0.9% (plus) 50 ML 100 MG IV ×2 (10:20→17:55)
[2023-01-27] MEDS: vasopressin 20 unit/mL INJ 4 UNIT INJECTION (11:51)
--- NOTE | 2023-01-27 12:57 | SUR.OPER ---
1257 updated family in waiting area
--- NOTE | 2023-01-27 15:29 | XRR_ITS ---
PROCEDURE INFORMATION: Exam: XR Abdomen, 1 View Exam date and time: 01/27/2023 4:04 PM Age: 62 years old Clinical indication: Screening exam; Other: Surgical count verification; Prior surgery; Surgery date: Post-operative (0-2 days); Surgery type: Hysterectomy TECHNIQUE: Imaging protocol: XR of the abdomen. Views: Frontal supine view of the abdomen. 1 View. COMPARISON: CT abdomen pelvis w con* [id number] 10/27/2022 3:02 AM FINDINGS: Gastrointestinal tract: Normal. No bowel dilation. Bones/joints: Unremarkable. Soft tissues: No radiopaque foreign body. Radiopaque device or foreign body: No surgical instrument, lap sponge or surgical needle seen. XR/XR abdomen 1V* [id number] IMPRESSION: No radiopaque foreign body.
--- NOTE | 2023-01-27 15:55 | P.OP_ITS ---
Operative Report Date of procedure: January 27, 2023 Pre-op diagnosis: Preop Diagnosis enlarged uterus, pmb Post-op diagnosis: same Post-op findings: 16 week sized uterus, unable to fit through pelvis Procedure done: LAVH, RSO, converted to LESIA. RSO Specimens removed/disposition: Uterus, fibroids, right tube and ovary to pathology Surgeon: Brittani Brown Anesthesia: General Estimated blood loss (mL): 2,000 IV fluids (mL): 2,800 Urine output (mL): 950 Complications: bleeding during surgery. Findings: 2 units of blood given 1000 ml of crystalloid given intraoperatively Condition: stable Disposition: PACU Procedure: The patient was taken to the operating room where general anesthesia was administered and found to be adequate. She was prepped and draped in the normal sterile fashion in the [facility] Scott catheter was placed. A weighted speculum was placed into the vagina and the anterior lip of the cervix was grasped with a single tooth tenaculum. The Zumi uterine manipulator was placed. The weighted speculum was removed. The gloves were changed and attention was turned to the abdomen. A 5 mm supraumbilical incision was made. Using a 5 mm port with the camera, the port was placed into the abdomen. The abdomen was insufflated. Two low, lateral 5 mm ports were placed on the left and right under direct visualization from the camera. The right tube was grasped and elevated. Using the laparoscopic cautery, the infundibulopelvic ligament was cauterized, then the broad ligament and finally the utero ovarian ligament and round ligament. The left side had already had a LSO. The round ligament had already been cauterized previously. The uterus was so large, that I did not attempt to cauterize any further. Attention was then turned to the vaginal portion of the procedure. The weighted speculum was placed into the vagina. The zumi manipulator was removed. The single tooth tenaculum was removed and replaced with the nerissa's tenaculum. 10 mL of dilute Pitressin was injected at the vesicovaginal sang ction. A circumferential incision was made at the vesicovaginal junction and the vaginal mucosa reflected cephalad. The posterior peritoneum was entered sharply with the Metzenbaum scissors and the long weighted speculum replaced. Using the Chance clamps the uterosacral ligaments were clamped cut and suture- ligated. The anterior peritoneum was entered sharply with the metzenbaum scissors. Then sequentially the uterine arteries and cardinal ligaments were clamped cut and suture-ligated. A single-tooth tenaculum was used, but I could not deliver the uterus. I attempted to bivalve the uterus. It still wouldn't move. I removed some small fibroids, but still could not get the uterus to move. At this point, the cervix pulled off and the uterine body was clamped with a Jay clamp. I changed my gloves and went laparoscopic again. Using cautery, I opened the fibroids and attempted to remove them. I was only able to remove pieces. The uterus had decreased in size after this. I moved back to the vagina and was still unable to remove the uterus vaginally. At this time, she had continued moderate bleeding. I made the decision to open the patient, not only to remove the uterus, but to determine where the bleeding was coming from. A Pfannenstiel skin incision was made and carried down to the underlying layer of fascia. The fascia was nicked in the midline and extended laterally with the Villaseñor scissors. The fascia was then tented up and the rectus muscles dissected off sharply. The rectus muscles were in the midline and the abdomen entered bluntly with the digit. This peritoneal incision was extended superiorly and inferiorly with good visualization of the bladder. The O'Isaiah- O'Vernon retractor was placed and the bowel packed away. The remaining small segement of the utero-ovarian ligaments were clamped cut and suture-ligated bilaterally and the specimen was removed. There appeared to be good hemostasis with only mild bleeding from the cuff. The Scott catheter was removed and the cystoscope advanced into the bladder. The patient was given pyridium and bilateral spill was noted. There were no injuries or deficits noted in the bladder. Pressure over the bladder simulating cough was performed. There was no incontinence. The Scott was replaced. Attention was then directed at cuff closure. The peritoneoum was brought together anterior to posterior in a figure of eight stitch. The vaginal cuff was closed in a running locked pattern incorperating the uterosacral ligaments into the lateral aspects of the vaginal cuff. Vaginal packing was placed for good hemostasis. The gloves and gowns were changed and attention was turned to the abdomen. Inspection revealed the posterior peritoneum was bleeding slightly. It was reapproximated. A pedicle on the left was bleeding. it was clamped and sutured and all bleeding ceased. The pelvis was irrigated. There was excellent hemostasis. The O'Isaiah-O'Vernon retractor as well as the packing was removed. The peritoneum was closed with 3-0 Monocryl in a running fashion. The fascia was closed with 0 Vicryl in a running fashion with 2 separate sutures overlapping in the midline. The skin was closed with absorbable peter. The ports were closed with 2-0 monocryl with skin glue. The patient tolerated the procedure well. Sponge lap and needle counts were correct x2. She was taken to the recovery room in stable condition.
[2023-01-27] MEDS: ketorolac 30 mg/mL INJ IVP ×2 (17:54→23:45)
[2023-01-27] MEDS: dextrose 5%-lactated ringers 1,000 ML 125 ML IV (17:55)
--- NOTE | 2023-01-27 23:09 | PC.NURSE ---
Patient was helped from the bed to the chair with standby assistance. She tolerated the procedure well. She says her pain is better now. Right now the only pain she is feeling is in her right shoulder.
[2023-01-28 00:07] VITALS: BP 135/70; PULSE 88; RESP 19; TEMP 36.6; O2SAT 98
[2023-01-28] MEDS: ceFAZolin 2,000 MG in sodium chloride 0.9% (plus) 50 ML 100 MG IV (02:33)
[2023-01-28] MEDS: dextrose 5%-lactated ringers 1,000 ML 125 ML IV (02:54)
[2023-01-28 04:10] VITALS: BP 124/71; PULSE 79; RESP 18; TEMP 36.7; O2SAT 96
--- NOTE | 2023-01-28 05:32 | PC.NURSE ---
Patients velez catheter was removed at this time along with vaginal packing. Patient tolerated procedure well. She has been up to the chair multiple times and walked around the halls.
--- NOTE | 2023-01-28 05:34 | PC.NURSE ---
This nurse went into the room to give the patient her third dose of toradol but the patient had pulled her IV out slightly and I told her I would have to start another IV in order to give the toradol she requested that I not do that unless I had to as she is not in pain at this time. I told her we could switch to by mouth medication for pain if needed and she verbalized understanding at this time.
[2023-01-28 05:38] LABS: Hematocrit 31.3 % (37.0-47.0); Hemoglobin 10.8 g/dL (11.5-15.3); Mean Corpuscular HGB Conc 34.5 g/dL (30.0-36.0); Mean Corpuscular Hemoglobin 30.5 pg (28.0-34.0); Mean Corpuscular Volume 88.4 fl (81-99); Mean Platelet Volume 11.4 fL (7.4-10.4); Platelet Count 90 10^3/cmm (130-400); Red Blood Count 3.54 10^6/uL (4.1-5.3); Red Cell Distribution Width 17.1 % (12.1-15.1); White Blood Count 10.1 10^3/uL (4.0-10.0)
[2023-01-28] MEDS: lisinopril 10 mg Tablet PO (09:23)
[2023-01-28] MEDS: hydroCHLOROthiazide 25 mg Tablet 12.5 MG PO (09:23)
[2023-01-28] MEDS: phenazopyridine 100 mg Tablet 200 MG PO ×3 (09:23→20:16)
[2023-01-28] MEDS: docusate sodium 100 mg Capsule PO ×2 (09:23→20:16)
[2023-01-28 09:41] VITALS: BP 115/67; PULSE 83; RESP 15; TEMP 36.7
[2023-01-28] MEDS: ibuprofen 800 mg tablet PO ×2 (13:01→20:16)
--- NOTE | 2023-01-28 15:04 | P.PN_ITS ---
Subjective Subjective: The patient is doing well this morning. Vitals are stable. Hemoglobin is stable. She has been ambulating in the halls. She has tolerated a regular diet. Vitals/I&O/Wt Last Vital Signs Temp 98.0 F 01/28/23 09:41 Pulse 83 01/28/23 09:41 Resp 15 01/28/23 09:41 BP 115/67 01/28/23 09:41 Pulse Ox 96 01/28/23 04:10 O2 Del Method 01/28/23 04:10 O2 Flow Rate 6 01/27/23 16:05 01/28/23 01/28/23 01/28/23 06:59 14:59 22:59 Intake Total 1050 / 5850 Output Total 350 / 4500 400 / 400 Balance 700 / 1350 -400 / -400 Physical Exam Narrative: Pain is well controlled. The patient has no concerns today. Surgery discussed with patient Const: COMMON NORMALS: no acute distress, patient oriented x3, no limitations, healthy appearing, alert and well nourished GENERAL APPEARANCE: cooperative, comfortable, well kempt and well developed ORIENTATION/CONSCIOUSNESS: Yes awake, Yes oriented to person, Yes oriented to place and Yes oriented to time Resp: COMMON NORMALS: clear to auscultation bilaterally AUSCULTATION: clear to auscultation bilaterally GI: COMMON NORMALS: Soft to palpation and non-tender PALPATION: Yes Soft to palpation Extremity: COMMON NORMALS: no calf tenderness Neuro: COMMON NORMALS: patient oriented x3 SENSORIUM/ORIENTATION: Yes alert, Yes oriented to person, Yes oriented to place and Yes oriented to time Psych: COMMON NORMALS: mental status grossly normal, Normal thought process present, cooperative, normal affect and speech normal APPEARANCE: Yes well kempt SPEECH: Yes normal speech THOUGHT PROCESS: Normal thought process present Urinary Catheter Management: Scott Latex: Cath Placed During This Visit: yes, but has since been removed by the nurse Reason for Continuing Indwelling Catheter: Decision to DC Catheter Urinary Catheter Date of Insertion: 01/27/23 Urinary Catheter Time of Insertion: 10:55 Date Urinary Catheter Removed: 01/28/23 Time Urinary Catheter Discontinued: 05:32 Data 01/28/23 05:30 01/23/23 09:35 Micro: Microbiology 01/27/23 10:55 Urine Culture - Preliminary Urine Catheterized Attestations Medical Necessity Statement*: The patient had an abdominal hysterectomy. She will be here two midnights. Coding Level of Care Code Acute Code for [facility] Fwd
[2023-01-28 17:23] VITALS: BP 129/71; PULSE 73; RESP 15; TEMP 36.9; O2SAT 94
[2023-01-28 21:27] VITALS: BP 127/75; PULSE 66; RESP 15; TEMP 36.9
[2023-01-29] MEDS: ibuprofen 800 mg tablet PO (04:24)
[2023-01-29 04:28] VITALS: BP 125/82; PULSE 83; RESP 16
--- NOTE | 2023-01-29 08:21 | P.DS_ITS ---
Discharge Providers Date of Admission: 01/27/23 15:58 Date of Discharge: January 29, 2023 Attending Provider at Admission: Brittani Brown MD Attending Provider at Discharge: Brittani Brown MD Primary Care Provider: Avis Dior Diagnoses at Discharge Discharge Diagnosis (1) Enlarged uterus: Status: Acute (2) PMB (postmenopausal bleeding): Status: Acute Reason for Visit Reason for Visit: postmenopausal bleeding Hospital Course Hospital Course The patient was admitted for surgery. She was originally scheduled for LAVH, but ended up being converted to LESIA due to large uterus and bleeding. She did well postoperatively and was ready for discharge on day #2 Physical Exam Narrative: The patient is doing well this morning. No concerns Const: COMMON NORMALS: no acute distress, patient oriented x3, no limitations, healthy appearing, alert and well nourished GENERAL APPEARANCE: cooperative, comfortable, well kempt and well developed ORIENTATION/CONSCIOUSNESS: Yes awake, Yes oriented to person, Yes oriented to place and Yes oriented to time Resp: COMMON NORMALS: normal respiratory effort EFFORT & INSPECTION: Yes able to speak in complete sentences GI: COMMON NORMALS: Soft to palpation and non-tender PALPATION: Yes Soft to palpation Extremity: COMMON NORMALS: no calf tenderness Neuro: COMMON NORMALS: patient oriented x3 SENSORIUM/ORIENTATION: Yes alert, Yes oriented to person, Yes oriented to place and Yes oriented to time Psych: COMMON NORMALS: mental status grossly normal, Normal thought process present, cooperative, normal affect and speech normal APPEARANCE: Yes well kempt SPEECH: Yes normal speech THOUGHT PROCESS: Normal thought process present Urinary Catheter Management: Scott Latex: Cath Placed During This Visit: yes, but has since been removed by the nurse Reason for Continuing Indwelling Catheter: Decision to DC Catheter Urinary Catheter Date of Insertion: 01/27/23 Urinary Catheter Time of Insertion: 10:55 Date Urinary Catheter Removed: 01/28/23 Time Urinary Catheter Discontinued: 05:32 Discharge Data Studies Completed and Pending Completed Studies During Hospitalization Category Date Time Status XR abdomen 1V* [id number] Routine Exams 01/27/23 15:29 Completed Pending at discharge Category Date Time Status Urine Culture Routine Lab 01/27/23 10:55 Results Pathology: Surgical [PTH] Routine Pth 01/27/23 15:34 Received Radiology Impressions Abdomen X-Ray 01/27/23 15:29 IMPRESSION: No radiopaque foreign body. Laboratory Results WBC 10.1 10^3/uL (4.0-10.0) H 01/28/23 05:30 RBC 3.54 10^6/uL (4.1-5.3) L 01/28/23 05:30 Hgb 10.8 g/dL (11.5-15.3) L 01/28/23 05:30 Hct 31.3 % (37.0-47.0) L 01/28/23 05:30 MCV 88.4 fl (81-99) 01/28/23 05:30 MCH 30.5 pg (28.0-34.0) 01/28/23 05:30 MCHC 34.5 g/dL (30.0-36.0) 01/28/23 05:30 RDW 17.1 % (12.1-15.1) H 01/28/23 05:30 Plt Count 90 10^3/cmm (130-400) L 01/28/23 05:30 MPV 11.4 fL (7.4-10.4) H 01/28/23 05:30 Neut % (Auto) 57.9 % 01/23/23 09:35 Lymph % (Auto) 29.4 % 01/23/23 09:35 Grayson % (Auto) 9.2 % 01/23/23 09:35 Eos % (Auto) 2.6 % 01/23/23 09:35 Baso % (Auto) 0.7 % 01/23/23 09:35 Neut # (Auto) 2.64 10^3/uL (1.8-7.7) 01/23/23 09:35 Lymph # (Auto) 1.3 10^3/uL (0.8-4.8) 01/23/23 09:35 Grayson # (Auto) 0.4 10^3/uL (0.2-0.9) 01/23/23 09:35 Eos # (Auto) 0.1 10^3/uL (0.0-0.8) 01/23/23 09:35 Baso # (Auto) 0.0 10^3/uL (0.0-0.1) 01/23/23 09:35 Nucleated RBC % (auto) 0 % 01/23/23 09:35 Nucleated RBCs # 0.0 /100WBC 01/23/23 09:35 Sodium 138 mmol/L (136-145) 01/23/23 09:35 Potassium 4.4 mmol/L (3.5-5.1) 01/23/23 09:35 Chloride 101 mmol/L (98-107) 01/23/23 09:35 Carbon Dioxide 25 mmol/L (22-29) 01/23/23 09:35 Anion Gap 16.4 (5-19) 01/23/23 09:35 BUN 8 mg/dL (8-23) 01/23/23 09:35 Creatinine 0.6 mg/dL (0.5-0.9) 01/23/23 09:35 GFR Calculation 102.0 mL/min (90-130) 01/23/23 09:35 Glucose 90 mg/dL (65-115) 01/23/23 09:35 Calculated Osmolality 284 mOsm/kg (285-295) L 01/23/23 09:35 Calcium 9.8 mg/dL (8.5-10.5) 01/23/23 09:35 Blood Type B Negative 01/27/23 10:01 Rho(D) Type Negative 01/27/23 10:01 Antibody Screen Negative 01/27/23 10:01 Crossmatch See Detail 01/27/23 10:01 Vitals Last Vital Signs Temp 98.5 F 01/28/23 21:27 Pulse 83 01/29/23 04:28 Resp 16 01/29/23 04:28 BP 125/82 01/29/23 04:28 Pulse Ox 94 01/28/23 17:23 O2 Del Method 01/28/23 17:23 O2 Flow Rate 6 01/27/23 16:05 Discharge Plan Discharge Patient Disposition: Home Condition: Stable Prescriptions: New docusate sodium 100 mg Capsule 100 mg PO BID Qty: 60 0RF ibuprofen 800 mg Tablet 800 mg PO Q8H Qty: 30 0RF hydrocodone-acetaminophen 5-325 mg Tablet 1 tab PO Q4H PRN (Reason: Moderate To Severe Pain) Qty: 30 0RF Continued lisinopril-hydrochlorothiazide 10-12.5 mg tablet 1 tab PO DAILY Label Comments: Patient unsure of dosage. atorvastatin 10 mg tablet 10 mg PO DAILY Label Comments: Patient unsure of dosage Prempro 0.625-2.5 mg tablet 1 tab PO DAILY Patient Instructions: Cystoscopy, Hysterectomy (DC), Laparoscopic Hysterectomy (DC), Cystoscopy (DC), Vaginal Hysterectomy (DC), OB Discharge Report, OB Food/Drug Interaction Guide, Opioid Safety Discharge Attestations Time Spent in Discharge Care*: less than 30 min Quality Metrics Clinical Quality Measures [ No reported AMI, CVA or VTE this stay] Coding Level of Care Code Acute Code for Chg Fwd Diagnoses Enlarged uterus N85.2 PMB (postmenopausal bleeding) N95.0
[2023-01-29 10:05] VITALS: BP 150/86; PULSE 73; RESP 15; TEMP 36.7; O2SAT 96
== END 2023-01-29 10:10 | disposition home or self-care (01) | DRG 743 ==
LOC: OBGYN 16:00
PROVIDERS: Admitting Provider Obstetrics & Gynecology; PCP Physician Assistant; Visit Provider Obstetrics & Gynecology
PROC: 0UT9FZZ Resection of Uterus, Via Natural or Artificial Opening With Percutaneous Endoscopic Assistance (ICD-10-PCS; principal; 2023-01-27 10:15)
PROC: 0TJB8ZZ Inspection of Bladder, Via Natural or Artificial Opening Endoscopic (ICD-10-PCS; CPT 52000; 2023-01-27 10:15)
PROC: 0UT90ZZ Resection of Uterus, Open Approach (ICD-10-PCS; CPT 58150; 2023-01-27 10:15)
DX: N85.2 Hypertrophy of uterus (principal); N95.0 Postmenopausal bleeding; Z79.890 Hormone replacement therapy; I10 Essential (primary) hypertension; E78.5 Hyperlipidemia, unspecified; E66.01 Morbid (severe) obesity due to excess calories; Z68.37 Body mass index [BMI] 37.0-37.9, adult
CPT/HCPCS: 36415; 74018; 80048; 85025; 85027; 86850; 86900; 86920; 87086; 88307; 96374; 96376; J0131; J0690; J1170; J1200; J1885; J2250; J2370; J2405; J2704; J3010; J3490; J7030; J7121; P9016; P9045

== ENCOUNTER 2023-08-31 15:18 | Outpatient (CLI) | payer OTHER, SELFPAY ==
--- NOTE | 2023-08-31 15:55 | MM_ITS ---
WS: [id number] BILATERAL 3D TOMOSYNTHESIS DIGITAL SCREENING MAMMOGRAM WITH CAD CLINICAL INFORMATION: Z12.31 - Encounter for screening mammogram for malignant ... HISTORY: Screening mammogram. No current complaints. COMPARISON: 08/27/2022 TECHNIQUE: Bilateral CC and MLO views. FINDINGS: Fatty-replaced breasts bilaterally. No suspicious focal mass, asymmetry, calcifications, or etl informatica architect ural distortion. No evidence of malignancy. A few incidental punctate calcifications. IMPRESSION: MM/[place] [id number] BI-RADS: 2-Benign FOLLOW UP: 1 Year Follow-up Recommend return to annual screening mammography.
== END 2023-08-31 15:19 | disposition home or self-care (01) ==
LOC: RAD 15:20
PROVIDERS: PCP Physician Assistant; Visit Provider Nurse Practitioner Women's Health
DX: Z12.31 Encounter for screening mammogram for malignant neoplasm of breast (principal)
CPT/HCPCS: 77063; 77067

== ENCOUNTER 2024-01-25 12:28 | Oncology outpatient (recurring) (ONCR) | payer OTHER, SELFPAY ==
[2024-01-25 14:10] LABS: Basophils % 0.5 %; Eosinophils # 0.1 10^3/uL (0.0-0.8); Eosinophils % 2.6 %; Hematocrit 43.6 % (36-47); Lymphocytes # 0.9 10^3/uL (0.8-4.8); Lymphocytes % 23.6 %; Mean Corpuscular HGB Conc 33.5 g/dL (30-55); Mean Corpuscular Hemoglobin 31.5 pg (27-33); Mean Corpuscular Volume 94.2 fl (85-98); Mean Platelet Volume 11.9 fL (7.4-10.4); Monocytes # 0.3 10^3/uL (0.2-0.9); Monocytes % 8.7 %; Neutrophils # 2.51 10^3/uL (1.8-7.7); Neutrophils % 64.3 %; Nucleated Red Blood Cells % 0 %; Platelet Count 73 10^3/cmm (157-399); Red Blood Count 4.63 10^6/uL (3.85-5.65); Red Cell Distribution Width 13.1 % (12.1-15.1)
[2024-01-25 14:20] LABS: Erythrocyte Sedimentation Rate 7 mm/hr (0-15)
[2024-01-25 14:34] LABS: Alanine Aminotransferase 63 U/L (0-33); Albumin Level 4.3 g/dL (3.5-5.2); Alkaline Phosphatase 61 U/L (35-105); Anion Gap 10.9 (5-19); Aspartate Amino Transferase 72 U/L (0-32); Blood Urea Nitrogen 7 mg/dL (8-23); C Reactive Protein 3.4 mg/L (0.0-4.9); Calcium 9.3 mg/dL (8.5-10.5); Carbon Dioxide 27 mmol/L (22-29); Chloride 100 mmol/L (98-107); Creatinine Clr Calc Pharmacy 119.6072; Globulin 2.7 g/dL (1.3-4.6); Glomerular Filtration Rate 101.6 mL/min (90-130); Glucose 83 mg/dL (65-115); Lactate Dehydrogenase 202 U/L (135-214); Osmolality Calculated 275 mOsm/kg (285-295); Potassium 3.9 mmol/L (3.5-5.1); Sodium 134 mmol/L (136-145); Total Bilirubin 0.6 mg/dL (0.15-1.2)
[2024-01-25 14:50] LABS: Vitamin B12 496 pg/mL (232-1245)
[2024-01-25 15:11] LABS: LAB Peripheral Smear Sent for Review
== END 2024-02-21 23:59 | disposition home or self-care (01) ==
PROVIDERS: PCP Nurse Practitioner Women's Health; Visit Provider Internal Medicine Medical Oncology
DX: D69.6 Thrombocytopenia, unspecified (principal); Z53.9 Procedure and treatment not carried out, unspecified reason
CPT/HCPCS: 36415; 80053; 82607; 83615; 85025; 85651; 86140

== ENCOUNTER → 2024-03-18 08:54 | Outpatient (BNVA) | payer OTHER, SELFPAY | PROVIDERS: PCP Registered Nurse; Visit Provider Registered Nurse | DX: R33.9 Retention of urine, unspecified (principal); R10.9 Unspecified abdominal pain; K59.00 Constipation, unspecified | CPT/HCPCS: 81000 ==

== ENCOUNTER 2024-03-23 11:19 | Oncology outpatient (recurring) (ONCR) | payer OTHER, SELFPAY ==
[2024-03-23 11:43] LABS: Basophils % 0.7 %; Eosinophils # 0.1 10^3/uL (0.0-0.8); Eosinophils % 1.9 %; Hematocrit 44.3 % (36-47); Lymphocytes % 23.5 %; Mean Corpuscular HGB Conc 33.4 g/dL (30-55); Mean Corpuscular Hemoglobin 31.4 pg (27-33); Mean Corpuscular Volume 94.1 fl (85-98); Monocytes # 0.3 10^3/uL (0.2-0.9); Monocytes % 7.5 %; Neutrophils # 2.72 10^3/uL (1.8-7.7); Neutrophils % 66.2 %; Nucleated Red Blood Cells % 0 %; Platelet Count 72 10^3/cmm (157-399); Red Blood Count 4.71 10^6/uL (3.85-5.65); Red Cell Distribution Width 13.3 % (12.1-15.1); White Blood Count 4.12 10^3/uL (3.29-11.43)
[2024-03-23 12:04] LABS: Alanine Aminotransferase 57 U/L (0-33); Albumin Level 4.2 g/dL (3.5-5.2); Alkaline Phosphatase 61 U/L (35-105); Anion Gap 14.8 (5-19); Aspartate Amino Transferase 50 U/L (0-32); Blood Urea Nitrogen 7 mg/dL (8-23); Calcium 9.7 mg/dL (8.5-10.5); Carbon Dioxide 24 mmol/L (22-29); Chloride 103 mmol/L (98-107); Globulin 2.9 g/dL (1.3-4.6); Glomerular Filtration Rate 101.6 mL/min (90-130); Glucose 101 mg/dL (65-115); Osmolality Calculated 284 mOsm/kg (285-295); Potassium 3.8 mmol/L (3.5-5.1); Sodium 138 mmol/L (136-145); Total Bilirubin 0.5 mg/dL (0.15-1.2); Total Protein 7.1 g/dL (6.6-8.7)
[2024-03-23 14:35] LABS: Ferritin 148 ng/mL (15-150); Lactate Dehydrogenase 202 U/L (135-214)
[2024-03-23 14:48] LABS: Vitamin B12 472 pg/mL (232-1245)
[2024-03-23 14:50] LABS: Folate Level 9.7 ng/mL (4.8-37.3)
[2024-03-23 14:56] LABS: Hepatitis A Antibody IgM Non-Reactive (Nonreactive); Hepatitis B Core AB, Total Non-Reactive (Nonreactive); Hepatitis B Surface AB 11.3 (11.5-1000); Hepatitis B Surface Antigen Non-Reactive (Nonreactive); Hepatitis C Virus Antibody Non-Reactive (Nonreactive)
== END 2024-04-22 23:59 | disposition home or self-care (01) ==
PROVIDERS: Internal Medicine Hematology & Oncology; PCP Registered Nurse; Visit Provider Internal Medicine Medical Oncology
DX: D69.6 Thrombocytopenia, unspecified (principal)
CPT/HCPCS: 36415; 80053; 82607; 82728; 82746; 83615; 85025; 86705; 86706; 86709; 86803; 87340

== ENCOUNTER 2024-04-05 14:13 | Outpatient (CLI) | payer OTHER, SELFPAY ==
--- NOTE | 2024-04-05 14:30 | CT_ITS ---
WS: [id number] CT ABDOMEN AND PELVIS NONCONTRAST HISTORY: R10.9 - Unspecified abdominal pain TECHNIQUE: Imaging performed through the abdomen and pelvis. Coronal and sagittal reformats are submi tted. All CT scans at [facility] use at least one of these dose optimization techniques: auto mated exposure control; mA and/or kV adjustment per patient size (includes targeted exams where dose is matched to clinical indication); or iterative reconstruction. DLP: 878.35 mGy.cm COMPARISON: 10/27/2022 Lower thorax: Lung bases are clear. Visualized heart is normal. Small hiatal hernia. Liver: Normal size liver. No mass or bile duct dilatation. Gallbladder: Mildly contracted. No adjacent inflammation. Pancreas: Normal size and attenuation. Normal pancreatic duct. No pancreatitis or mass. Spleen: Normal. Adrenal glands: Normal. No mass. Right kidney: Normal size kidney with no mass or hydronephrosis. Left kidney: Normal size. No obstruction or calcification. 9 mm exophytic high density mass in the lo wer pole. Probably a complex cyst, no change in size since 10/27/2022. Aorta: Mild atherosclerosis abdominal aorta with no aneurysm. No free fluid, intraperitoneal air or significant lymphadenopathy. GI tract: Normally distended stomach. No small bowel obstruction. No appendicitis. Mild constipation. Abdominal wall: Negative. No hernia. Pelvis: Prior hysterectomy. No free fluid in the pelvis. No mass. Negative urinary bladder. Osseous structures: Unremarkable. CT/CT abdomen pelvis wo con [id number] IMPRESSION: 1. No acute abdominal or pelvic abnormalities. 2. No renal obstruction. No renal calcification. 3. Mild diffuse constipation. No evidence for diverticulitis. 4. Prior hysterectomy.
== END 2024-04-05 14:14 | disposition home or self-care (01) ==
LOC: RAD 14:13
PROVIDERS: PCP Registered Nurse; Visit Provider Registered Nurse
DX: R10.9 Unspecified abdominal pain (principal); K59.00 Constipation, unspecified; Z90.710 Acquired absence of both cervix and uterus
CPT/HCPCS: 74176

== ENCOUNTER 2024-04-11 09:04 | Outpatient (CLI) | payer OTHER, SELFPAY ==
[2024-04-11 10:26] LABS: Estmated Average Glucose 111; Hemoglobin A1C 5.5 % (4.0-6.0)
== END 2024-04-11 09:05 | disposition home or self-care (01) ==
PROVIDERS: PCP Registered Nurse; Visit Provider Registered Nurse
DX: R73.03 Prediabetes (principal)
CPT/HCPCS: 36415; 83036

== ENCOUNTER 2024-04-25 09:37 | Outpatient (CLI) | payer OTHER, SELFPAY ==
[2024-04-27 17:35] LABS: Barley Classification 0; Barley IgE <0.10 kU/L; Beef (27) IgE 0.14 kU/L; Beef Class 0/1; Cow's Milk (F2) IgE <0.10 kU/L; Cow's Milk Classification 0; Egg White (F1) Ige <0.10 kU/L; Egg White Class 0; Immunoglobulin E 7 kU/L (<OR=114); Lamb (F88) IgE 0.15 kU/L; Lamb Class 0/1; Maize Corn Class 0; Maize/Corn (F8) Ige <0.10 kU/L; Oat (F7) Ige <0.10 kU/L; Oat Class 0; Pork (F26) IgE <0.10 kU/L; Pork Class 0; Potato (F35) Ige <0.10 kU/L; Potato Class 0; Rye (F5) Ige <0.10 kU/L; Rye Class 0; Soybean (F14) Ige <0.10 kU/L; Soybean Class 0; Tomato (F25) Ige <0.10 kU/L; Tomato Class 0; Wheat (F4) Ige <0.10 kU/L; Wheat Class 0
== END 2024-04-25 09:38 | disposition home or self-care (01) ==
LOC: LAB 09:39
PROVIDERS: PCP Registered Nurse; Visit Provider Registered Nurse
DX: K59.00 Constipation, unspecified (principal)
CPT/HCPCS: 36415; 82785; 86001; 86003; 86008

== ENCOUNTER 2024-04-29 09:22 | Outpatient (CLI) | payer OTHER, SELFPAY | END 2024-04-29 09:23 | disposition home or self-care (01) | LOC: LAB 09:23 | PROVIDERS: PCP Registered Nurse; Visit Provider Registered Nurse | DX: K59.00 Constipation, unspecified (principal) | CPT/HCPCS: 86001 ==

== ENCOUNTER 2024-07-20 05:50 | Day surgery (SDC) | payer OTHER, SELFPAY ==
[2024-07-20] VITALS (7 sets, daily range): BP systolic 119–171; BP diastolic 67–99; PULSE 61–78; RESP 18; TEMP 36.1–36.2; O2SAT 96–98; BMI 35.8
--- NOTE | 2024-07-20 05:57 | SC_ITS ---
WS: [id number] INTRAOPERATIVE TECHNIQUE: 3 Spot fluoroscopic images for intraoperative purposes. FLUOROSCOPY TIME: 27.6 seconds CLINICAL INFORMATION: central venous catheter placement FINDINGS: RIGHT central venous catheter with tip in the mid SVC. No visualized pneumothorax. SC/C-arm FL for CVA [id number] IMPRESSION: Images obtained for intraoperative purposes.
[2024-07-20] MEDS: sodium chloride 0.9% 1,000 ML 30 ML IV (06:21)
--- NOTE | 2024-07-20 06:37 | ANES.PREANE2 ---
Pre-Anesthetic Assessment Height/Weight: Height 5 ft 6 in Weight 222 lb O2 Del Method Room Air 07/20/24 06:04 Operation Date: 07/20/24 07:00 Proposed Procedures p Portacath Placement [id number], C20(Not Applicable) - Tom Zabala MD Social No alcohol and No tobacco Exam alert, oriented x 3, clear to auscultation bilaterally and regular rate & rhythm Airway Submandibular: within normal limits Cervical ROM: within normal limits Mallampati: Class III Dentition: full Anesthetic Plan ASA status: 2 Anesthesia: General Other: No prior issues with anesthesia NPO since midnight Labs reviewed and acceptable for surgery Patient recently diagnosed with rectal cancer, plan for chemotherapy following port placement METs greater than 4 Patient denies any cardiac or pulmonary issues Plan for general anesthesia with LMA Medications/Allergies Home Medications Medication Instructions Recorded Confirmed Last Taken Type atorvastatin 10 mg tablet 10 mg PO DAILY 11/07/20 07/19/24 07/19/24 History lisinopril 10 1 tab PO DAILY 11/07/20 07/19/24 07/19/24 History mg-hydrochlorothiazide 12.5 mg tablet docusate sodium 100 mg capsule 100 mg PO DAILY #30 caps 03/23/24 07/19/24 07/19/24 Rx (Colace) linaclotide 72 mcg capsule 72 mcg PO DAILY 90 days #90 caps 04/26/24 07/19/24 07/19/24 Rx (Linzess) estradiol 0.05 mg/24 hr semiweekly 1 patch transdermal .twice weekly 06/16/24 07/19/24 07/19/24 Rx transdermal patch #24 ea lorazepam 1 mg tablet 0.5 - 1 mg (0.5 - 1 x 1 mg) PO Q6H 07/19/24 Unknown Rx PRN Severe Nausea #30 tabs ondansetron HCl 4 mg tablet 4 mg PO QID PRN Nausea/vomiting 07/19/24 Unknown Rx #30 tabs prochlorperazine maleate 10 mg 10 mg PO Q4H PRN Mild Nausea #30 07/19/24 Unknown Rx tablet (Compazine) tabs Allergies Allergy/AdvReac Type Severity Reaction Status Date / Time azithromycin AdvReac Intermediate Gastric Verified 07/20/24 06:13 [From Zithromax Z-Esvin] distress Penicillins AdvReac Intermediate red rash Verified 07/20/24 06:13 prednisone AdvReac Intermediate turned her Verified 07/20/24 06:13 red all over Current Medications Generic Name Dose Route Start Last Admin Trade Name Shreyas PRN Reason Stop Dose Admin Sodium Chloride 1,000 mls @ 30 mls/hr 07/20/24 06:15 07/20/24 06:21 Sodium Chloride 0.9% IV 07/21/24 06:14 30 mls/hr .Q24H CUONG Administration [facility] Anesthesia Medical History (Updated 07/15/24 @ 10:39 by Nava Cruz, DEANA) Rectal adenocarcinoma Thrombocytopenia Enlarged uterus PMB (postmenopausal bleeding) Hypertension, benign Hyperlipemia Surgical History (Updated 07/15/24 @ 10:38 by DEANA Marin) History of hysteroscopy (~11/2022) hysteroscopy, dilation and curettage with myosure performed by Dr. Brown at [facility] Specimens removed/disposition: endometrial curettings, uterine polyps and fibroids-- endometriosis o/w benign History of hysterectomy with unilateral oophorectomy (~01/2023) LAVH, RSO, converted to LESIA. RSO. Performed by Dr. Brown at [facility] for fibroids and [employer] bleeding History of carpal tunnel surgery of left wrist (~08/2016) History of carpal tunnel surgery of right wrist (~10/2012) History of left salpingo-oophorectomy (01/18/02) Laparoscopic with extensive ROMERO. [place]. [place] [facility] [place] S/P myomectomy (07/15/99) Abdominal. [place]. Guzman [place] [facility] [place] 3 fibroids removed (largest 10 cm). S/P tonsillectomy and adenoidectomy (~1967) Family History Sister Diabetes Hypertension Thyroid disease Heart disease Mother Hypertension Thyroid disease Colon cancer dx age 82 Grandmother Ovarian cancer Maternal---dx age unknown Breast cancer Maternal--dx age unknown Uterine cancer Maternal--dx age unknown Father Colon cancer dx age 85 Heart disease Family/Other Breast cancer Paternal Aunt--dx age unknown Denies family history of Stroke Social History Smoking and tobacco/nicotine status: never used tobacco/nicotine Substance/Drug Use: never Do you think of yourself as: Straight/Heterosexual Data Anesthesia Cardiac Studies: No Data to Display
[2024-07-20] MEDS: scopolamine 1.5 Patch 1 PATCH TRANSDERMA (06:38)
[2024-07-20 06:53] LABS: Basophils % 0.6 %; Eosinophils # 0.1 10^3/uL (0.0-0.8); Eosinophils % 1.9 %; Hematocrit 45.2 % (36-47); Lymphocytes # 0.8 10^3/uL (0.8-4.8); Lymphocytes % 22.4 %; Mean Corpuscular HGB Conc 33.2 g/dL (30-55); Mean Corpuscular Hemoglobin 31.5 pg (27-33); Mean Platelet Volume 12.4 fL (7.4-10.4); Monocytes # 0.3 10^3/uL (0.2-0.9); Monocytes % 8.3 %; Neutrophils # 2.41 10^3/uL (1.8-7.7); Neutrophils % 66.8 %; Nucleated Red Blood Cells % 0 %; Platelet Count 69 10^3/cmm (157-399); Red Blood Count 4.76 10^6/uL (3.85-5.65); Red Cell Distribution Width 12.8 % (12.1-15.1); White Blood Count 3.61 10^3/uL (3.29-11.43)
--- NOTE | 2024-07-20 06:54 | W.PM.BPON ---
No changes to the H&P from our last encounter. Consented. All questions answered. Patient agreed to have the port placed on either side.
[2024-07-20 06:58] LABS: Alanine Aminotransferase 55 U/L (0-33); Albumin Level 4.3 g/dL (3.5-5.2); Alkaline Phosphatase 64 U/L (35-105); Anion Gap 14.9 (5-19); Aspartate Amino Transferase 54 U/L (0-32); Blood Urea Nitrogen 7 mg/dL (8-23); Calcium 9.6 mg/dL (8.5-10.5); Carbon Dioxide 24 mmol/L (22-29); Chloride 106 mmol/L (98-107); Creatinine Clr Calc Pharmacy 117.9154; Globulin 2.8 g/dL (1.3-4.6); Glomerular Filtration Rate 101.6 mL/min (90-130); Glucose 98 mg/dL (65-115); Osmolality Calculated 290 mOsm/kg (285-295); Potassium 3.9 mmol/L (3.5-5.1); Sodium 141 mmol/L (136-145); Total Bilirubin 0.9 mg/dL (0.15-1.2); Total Protein 7.1 g/dL (6.6-8.7)
[2024-07-20] MEDS: ceFAZolin 2,000 mg SDV 2000 MG IVP (07:21)
[2024-07-20] MEDS: heparin, porcine 1,000 unit/mL INJ 10 mL 6000 UNIT IRRIGATION (07:55)
[2024-07-20] MEDS: BUPivacaine 0.25% INJ 10 mL 5 ML INJECTION (07:56)
[2024-07-20] MEDS: lidocaine 1% 10 ML INJ 5 ML INJECTION (07:57)
--- NOTE | 2024-07-20 08:31 | W.PM.BPON ---
Date of procedure: 07/20/24 Surgeon name: Dr. Vj Lucia Procedure performed: Right internal jugular central venous catheter (port placement) Description of findings: Fluoroscopy guided placement of central venous catheter. Port tested in OR. Able to flush. Able to draw blood. EBL: 5cc Specimen removed: none Post operative diagnosis: colorectal cancer
--- NOTE | 2024-07-20 08:37 | W.PM.OPSUD ---
Surgery/Procedure H&P Update DATE OF PROCEDURE: July 20, 2024 DATE H&P PERFORMED: 07/15/24 H&P UPDATE INFORMATION: I have reviewed H&P completed within last 30 days, I have examined patient prior to procedure and No changes to prior documentation PREOP DIAGNOSIS: Colorectal cancer PRIMARY INDICATION FOR PROCEDURE: Colorectal Cancer PLANNED PROCEDURE: Operation Date: 07/20/24 07:00 Proposed Procedures p Portacath Placement [id number], C20(Not Applicable) - Tom Zabala MD
--- NOTE | 2024-07-20 09:20 | ANE.PACU2 ---
Inpatient post-anesthesia follow up: Airway intact: Yes Vital signs: Temperature 97.1 F Pulse Rate 65 Respiratory Rate 18 Blood Pressure 139/77 Pulse Oximetry 98 Oxygen Delivery Me thod Room Air Oxygen Flow Rate Fraction of Inspir ed Oxygen Hydration adequate: Yes Nausea and vomiting: No Pain level: 1 Mental status: Baseline
--- NOTE | 2024-07-20 10:44 | W.PM.BPONFUL ---
Pathology: None Implant(s): Central venous catheter (Port-A-Cath) Anesthesia: MAC Complications: None Brief history/preop diagnosis: Colorectal carcinoma Full operative report: Patient was brought into the operating room and a timeout was carried out. Procedure was done under MAC. Patient was placed supine with the arms tucked and in Trendelenburg. Patient was prepped and draped in the usual sterile fashion. Using ultrasound guidance the right internal jugular vein was accessed. A guidewire was then placed down to the atriocaval junction using fluoroscopy. The finder needle was removed and the guidewire was secured. I then turned my attention to creating a pocket over the right chest. Make sure to locally infiltrated using plain lidocaine and bupivacaine at the site of the pocket and throughout the tunnel site. I confirmed adequate hemostasis at the pocket. I then proceeded to place the port that was already preassembled and flushed with heparin saline and the chest pocket. I tunneled the catheter from the chest to the neck at the site where I accessed the internal jugular vein. I measured and adjusted the length of the catheter so it would reach the atrial caval junction. At this point, I used a dilator to dilate the tract into the internal jugular vein using fluoroscopy. I removed the guidewire and proceeded to thread the central venous catheter through the introducer. In the process, I removed the sheath as a completely pushed the catheter into the internal jugular vein. I then confirmed adequate placement of the catheter using fluoroscopy. The tip of the catheter was confirmed to be placed in the atriocaval junction. There were no kinks noted throughout the trajectory of the catheter. I then proceeded to test the port and was satisfied with its functionality. I proceeded to flushed the catheter without any issues. I then hep-locked the port. Skin was closed using deep dermal 3-0 Vicryl, subcuticular 4-0 Monocryl, and Dermabond. Patient was then transferred to PACU without any complications. Condition: Stable Dispostion: Home
== END 2024-07-20 09:20 | disposition home or self-care (01) ==
PROVIDERS: Anesthesiology; PCP Registered Nurse; Visit Provider Student in an Organized Health Care Education/Training Program
PROC: (CPT 36561; principal; 2024-07-20 07:00)
DX: C18.9 Malignant neoplasm of colon, unspecified (principal); I10 Essential (primary) hypertension; E78.5 Hyperlipidemia, unspecified
CPT/HCPCS: 36561; 36415; 76000; 77001; 80053; 85025; C1788; J0690; J1644; J2250; J2704; J3010; J3490; J7030

== ENCOUNTER 2024-07-22 11:00 | Oncology outpatient (recurring) (ONCR) | payer OTHER, SELFPAY ==
[2024-07-07 11:57] LABS: Basophils % 0.2 %; Eosinophils # 0.1 10^3/uL (0.0-0.8); Eosinophils % 2.2 %; Hematocrit 45.6 % (36-47); Lymphocytes # 0.9 10^3/uL (0.8-4.8); Lymphocytes % 22.4 %; Mean Corpuscular HGB Conc 32.7 g/dL (30-55); Mean Corpuscular Hemoglobin 31.6 pg (27-33); Mean Corpuscular Volume 96.6 fl (85-98); Mean Platelet Volume 12.4 fL (7.4-10.4); Monocytes # 0.3 10^3/uL (0.2-0.9); Monocytes % 8.5 %; Neutrophils # 2.67 10^3/uL (1.8-7.7); Neutrophils % 66.5 %; Nucleated Red Blood Cells % 0 %; Platelet Count 74 10^3/cmm (157-399); Red Blood Count 4.72 10^6/uL (3.85-5.65); Red Cell Distribution Width 13.1 % (12.1-15.1); White Blood Count 4.02 10^3/uL (3.29-11.43)
[2024-07-07 12:15] LABS: Alanine Aminotransferase 73 U/L (0-33); Albumin Level 4.3 g/dL (3.5-5.2); Alkaline Phosphatase 65 U/L (35-105); Anion Gap 15.9 (5-19); Aspartate Amino Transferase 74 U/L (0-32); Blood Urea Nitrogen 7 mg/dL (8-23); Calcium 9.7 mg/dL (8.5-10.5); Carbon Dioxide 26 mmol/L (22-29); Chloride 102 mmol/L (98-107); Globulin 2.6 g/dL (1.3-4.6); Glomerular Filtration Rate 101.6 mL/min (90-130); Glucose 106 mg/dL (65-115); Osmolality Calculated 288 mOsm/kg (285-295); Potassium 3.9 mmol/L (3.5-5.1); Sodium 140 mmol/L (136-145); Total Bilirubin 0.7 mg/dL (0.15-1.2); Total Protein 6.9 g/dL (6.6-8.7)
[2024-07-07 12:53] LABS: Ferritin 141 ng/mL (15-150); Iron 68 ug/dL (37-145); Percent Saturation 17.8 % (20-50); Total Iron Binding Capacity 382 mcg/dl; Unsaturated Iron Binding 314 ug/dL (112-347)
--- NOTE | 2024-07-14 09:18 | N.ONRAD NP_ITS ---
Radiation Oncology New Patient Visit Patient: Catina eReves MR#: [id number] : 1960 Age: 63 Sex: Female Dictated by: Dr. Aileen Acosta Date of Service: 07/14/2024 Referring Physician(s) : Dr. Jun Montero Diagnosis: Adenocarcinoma of the rectum D69.6 - thrombocytopenia, unspecified, Diagnosed 02/05/2022 (active). Radiotherapy to date: Summary: No prior radiation therapy. Chief Complaint / History of Present Illness: Patient recalls how at she began to experience constipation. She used multiple laxative without relief. She had not had a scope in 7 years. She visited with her primary care and subsequently had a colonoscopy done. At that time 3 polyps were removed and one was considered to be precancerous. It was felt that her symptoms were due to dysfunctional bowel. She subsequently changed doctors and was sent for an additional scope with the doctors in [place]. At that evaluation she had a biopsy done of a mass that was semicircumferential low in the rectum and 2.4 cm in size. It was positive for adenocarcinoma of the rectum. She subsequently has had an MRI which did show adjacent lymph nodes making her radiographic stage T2 N2. She currently has issues with passing her bowels. She says they really just come out in chunks. She is continue to have some bleeding as well. She has pain when sitting and pain with bowel movement. She declines any pain medicine at this point and has been taking Tylenol as needed. I have asked her to go ahead and take the Tylenol 4 times a day on a schedule. Current Medications: Lipitor, lisinopril-hydroCHLOROthiazide, meloxicam, prempro. Allergies: Penicillins, Erythromycin, Sulfa Antibiotics, Percocet and predniSONE. Medical History: Degenerative arthritis, hyperlipidemia, hypertension. No history of collagen vascular disease. No previous radiation therapy. Surgical History: Bilateral carpal tunnel release in 2016, colonoscopy in 2017, left salpingoopherectomy in 2000, tonsillectomy and uterine myomectomy in 1998. Family History: Father had colon cancer. He at age 83, apparently from a preoperative blood clot to his brain. Mother at age 81, possibly of colon cancer, though it was not determined with certainty. A sister had diabetes and of heart attack. Social History: Last screened on 02/05/2022 - Never smoked. Last screened on 02/05/2022 - Drinks occasionally. Current Complaints / Review of Systems: . Vital Signs: Performed on 07/14/2024 7:38 AM BMI - 36.026 kg/m2 (high), Height - 66 in, Weight - 223.2 lbs, Temperature - 96.7 f, Pulse - 66 /min, Respiration - 18 /min, O2 Sat - 98 %, Pain - 5, Fatigue - 0 and BP - 141/ 85 mm(hg)(high/). Physical Exam: General Patient is in no apparent distress. She is accompanied by a friend HEENT: Normocephalic atraumatic. Pupils equal round reactive to light. Extraocular muscles intact Pulmonary: Respiratory rate is regular nonlabored Cardiovascular: Regular rate and rhythm Abdomen: Moderately protuberant Extremities: Without obvious edema or lymphedema Neurological: Alert and orient x 3. Gait and speech within normal limits Psych: Affect appropriate for current situation Performance Status: 90 Pathology: Primary, d69.6 - thrombocytopenia, unspecified, Diagnosed 02/05/2022 (active) . Lab: Imaging: See HPI Impression: Adenocarcinoma of the low rectum with nodes by MRI Plan: I reviewed her initial symptoms. We talked about her current symptoms. We reviewed the treatment plan wishes to proceed with chemotherapy initially followed by combined therapy. We discussed the simulation process. We reviewed the daily treatment regiment. We have discussed the risks and side effects both acute and long-term. This point she has a good understanding. She is scheduled to meet with general surgery on Thursday. Will go ahead and have her return during her last 1 or 2 courses of chemotherapy to begin the planning process so that we will be ready to start her treatments shortly after her eighth cycle. I did review with her that subsequently down the line she would be monitored and the surgeon would make a decision if she required surgery or perhaps she would be the 1 out of 3 that had had a complete response. She verbalized understanding and she is agreed to proceed. Signed by: 07/14/2024 9:16:53 AM <<Signature on File>> Time spent with patient:45 CPT Code: CPT Code:
[2024-07-20] MEDS: dextrose 5% 250 ML 75 ML IV (10:31)
[2024-07-20] MEDS: palonosetron 0.25 mg/5 mL SDV IVP (10:32)
[2024-07-20] MEDS: dexamethasone 4 mg/mL INJ 5 mL 6 MG IVP (10:36)
[2024-07-20 10:38] VITALS: RESP 17; O2SAT 97
[2024-07-20] MEDS: morphine 4 mg/mL SDV 1 mL 2 MG IVP (10:38)
[2024-07-20 10:42] VITALS: BP 145/79; PULSE 58; RESP 17; TEMP 36.1; O2SAT 97
[2024-07-20] MEDS: oxaliplatin 180 MG in dextrose 5% 250 ML 143 MG IV (11:51)
[2024-07-20] MEDS: leucovorin 840 MG in dextrose 5% 250 ML 62.5 MG IV (11:52)
[2024-07-20 14:00] VITALS: BP 151/83; PULSE 57; RESP 16; TEMP 36.2; O2SAT 97
[2024-07-20] MEDS: fluorouraciL 5,050 MG, elastomeric pump 1 PUMP in sodium chloride 0.9% (100 ml) 129 ML IV (14:08)
[2024-07-21 13:00] VITALS: BP 114/61; TEMP 36.6; O2SAT 96
[2024-07-21] MEDS: diphenhydrAMINE 25 mg Capsule PO (13:11)
--- NOTE | 2024-07-21 13:29 | PC.NURSE ---
Patient with new regime of chemo 07-21-24 with flushing and itching this morning especially around port site and both arms. Keli Crain did make an exam and ordered oral benadryl. After 30 minutes less itching and reddness noted and was dismissed.[email or web address]
[2024-07-21 13:41] VITALS: BP 124/78; PULSE 52; RESP 18; TEMP 37.1; O2SAT 95
[2024-07-22 10:48] VITALS: BP 122/78; PULSE 71; TEMP 36.5; O2SAT 97
== END 2024-07-23 23:59 | disposition home or self-care (01) ==
PROVIDERS: Internal Medicine Hematology & Oncology; PCP Registered Nurse; Visit Provider Internal Medicine Medical Oncology
DX: Z45.1 Encounter for adjustment and management of infusion pump (principal); Z53.9 Procedure and treatment not carried out, unspecified reason
CPT/HCPCS: 36415; 80053; 82728; 83540; 83550; 85025; 96368; 96375; 96413; 96415; 96416; 96523; J0640; J1100; J2270; J2469; J7060; J9190; J9263

== ENCOUNTER 2024-08-17 07:30 | Oncology outpatient (recurring) (ONCR) | payer OTHER, SELFPAY ==
[2024-08-03 08:04] LABS: Alanine Aminotransferase 53 U/L (0-33); Albumin Level 4.3 g/dL (3.5-5.2); Alkaline Phosphatase 58 U/L (35-105); Anion Gap 13.4 (5-19); Aspartate Amino Transferase 49 U/L (0-32); Blood Urea Nitrogen 7 mg/dL (8-23); Calcium 9.3 mg/dL (8.5-10.5); Carbon Dioxide 25 mmol/L (22-29); Chloride 102 mmol/L (98-107); Globulin 2.4 g/dL (1.3-4.6); Glomerular Filtration Rate 101.6 mL/min (90-130); Glucose 123 mg/dL (65-115); Osmolality Calculated 283 mOsm/kg (285-295); Potassium 3.4 mmol/L (3.5-5.1); Sodium 137 mmol/L (136-145); Total Bilirubin 0.5 mg/dL (0.15-1.2); Total Protein 6.7 g/dL (6.6-8.7)
[2024-08-03 08:07] LABS: Basophils % 0.3 %; Eosinophils # 0.1 10^3/uL (0.0-0.8); Eosinophils % 2.1 %; Hematocrit 42.8 % (36-47); Lymphocytes # 0.7 10^3/uL (0.8-4.8); Lymphocytes % 21.1 %; Mean Corpuscular HGB Conc 33.6 g/dL (30-55); Mean Corpuscular Hemoglobin 31.4 pg (27-33); Mean Corpuscular Volume 93.2 fl (85-98); Mean Platelet Volume 11.8 fL (7.4-10.4); Monocytes # 0.3 10^3/uL (0.2-0.9); Monocytes % 10.4 %; Neutrophils # 2.16 10^3/uL (1.8-7.7); Neutrophils % 66.1 %; Nucleated Red Blood Cells % 0 %; Platelet Count 58 10^3/cmm (157-399); Red Blood Count 4.59 10^6/uL (3.85-5.65); Red Cell Distribution Width 13.2 % (12.1-15.1); White Blood Count 3.27 10^3/uL (3.29-11.43)
[2024-08-03 09:08] VITALS: BP 160/68; PULSE 69; RESP 16; TEMP 36.3; O2SAT 97
[2024-08-03] MEDS: dexamethasone 4 mg/mL INJ 5 mL IVP (10:00)
[2024-08-03] MEDS: palonosetron 0.25 mg/5 mL SDV IVP (10:01)
[2024-08-03] MEDS: dextrose 5% 250 ML 75 ML IV (10:01)
[2024-08-03] MEDS: leucovorin 840 MG in dextrose 5% 250 ML 62.5 MG IV (11:00)
[2024-08-03] MEDS: oxaliplatin 180 MG in dextrose 5% 250 ML 143 MG IV (11:01)
[2024-08-03] MEDS: fluorouraciL 5,050 MG, elastomeric pump 1 PUMP in sodium chloride 0.9% (100 ml) 129 ML IV (13:21)
[2024-08-03 13:30] VITALS: BP 123/75; PULSE 71; RESP 17; TEMP 36.4; O2SAT 96
[2024-08-17 07:58] LABS: Basophils % 0.3 %; Hematocrit 41.9 % (36-47); Lymphocytes # 0.6 10^3/uL (0.8-4.8); Lymphocytes % 18.3 %; Mean Corpuscular HGB Conc 33.7 g/dL (30-55); Mean Corpuscular Hemoglobin 31.7 pg (27-33); Mean Corpuscular Volume 94.2 fl (85-98); Mean Platelet Volume 12.6 fL (7.4-10.4); Monocytes # 0.4 10^3/uL (0.2-0.9); Monocytes % 11.7 %; Neutrophils # 2.05 10^3/uL (1.8-7.7); Neutrophils % 68.4 %; Nucleated Red Blood Cells % 0 %; Platelet Count 44 10^3/cmm (157-399); Red Blood Count 4.45 10^6/uL (3.85-5.65); Red Cell Distribution Width 13.4 % (12.1-15.1)
[2024-08-17 08:16] LABS: Alanine Aminotransferase 60 U/L (0-33); Albumin Level 4.1 g/dL (3.5-5.2); Alkaline Phosphatase 66 U/L (35-105); Aspartate Amino Transferase 56 U/L (0-32); Blood Urea Nitrogen 5 mg/dL (8-23); Calcium 9.4 mg/dL (8.5-10.5); Carbon Dioxide 23 mmol/L (22-29); Chloride 104 mmol/L (98-107); Creatinine Clr Calc Pharmacy 139.1431; Globulin 2.6 g/dL (1.3-4.6); Glucose 144 mg/dL (65-115); Osmolality Calculated 288 mOsm/kg (285-295); Sodium 139 mmol/L (136-145); Total Bilirubin 0.5 mg/dL (0.15-1.2); Total Protein 6.7 g/dL (6.6-8.7)
[2024-08-17 08:20] LABS: Anion Gap 15.5 (5-19); Potassium 3.5 mmol/L (3.5-5.1)
== END 2024-08-22 23:59 | disposition home or self-care (01) ==
PROVIDERS: PCP Registered Nurse; Visit Provider Internal Medicine Medical Oncology
DX: C20 Malignant neoplasm of rectum (principal); Z53.9 Procedure and treatment not carried out, unspecified reason
CPT/HCPCS: 80053; 85025; 96365; 96366; 96368; 96375; 96413; 96415; 96416; 96523; J0640; J1100; J2469; J7060; J9190; J9263

== ENCOUNTER 2024-09-21 08:03 | Oncology outpatient (recurring) (ONCR) | payer OTHER, SELFPAY ==
[2024-08-24 07:52] LABS: Basophils % 0.8 %; Eosinophils % 1.2 %; Hematocrit 41.7 % (36-47); Lymphocytes # 0.6 10^3/uL (0.8-4.8); Lymphocytes % 23.7 %; Mean Corpuscular HGB Conc 32.9 g/dL (30-55); Mean Corpuscular Volume 94.3 fl (85-98); Mean Platelet Volume 11.8 fL (7.4-10.4); Monocytes # 0.4 10^3/uL (0.2-0.9); Monocytes % 14.8 %; Neutrophils # 1.52 10^3/uL (1.8-7.7); Neutrophils % 59.1 %; Nucleated Red Blood Cells % 0 %; Platelet Count 65 10^3/cmm (157-399); Red Blood Count 4.42 10^6/uL (3.85-5.65); Red Cell Distribution Width 13.9 % (12.1-15.1); White Blood Count 2.57 10^3/uL (3.29-11.43)
[2024-08-24 08:06] LABS: Alanine Aminotransferase 48 U/L (0-33); Albumin Level 4.1 g/dL (3.5-5.2); Alkaline Phosphatase 69 U/L (35-105); Aspartate Amino Transferase 54 U/L (0-32); Blood Urea Nitrogen 6 mg/dL (8-23); Calcium 9.3 mg/dL (8.5-10.5); Carbon Dioxide 24 mmol/L (22-29); Chloride 108 mmol/L (98-107); Globulin 2.4 g/dL (1.3-4.6); Glucose 91 mg/dL (65-115); Osmolality Calculated 285 mOsm/kg (285-295); Sodium 139 mmol/L (136-145); Total Bilirubin 0.4 mg/dL (0.15-1.2); Total Protein 6.5 g/dL (6.6-8.7)
[2024-08-24 08:19] LABS: Anion Gap 10.9 (5-19); Potassium 3.9 mmol/L (3.5-5.1)
[2024-08-24] MEDS: dextrose 5% 250 ML 75 ML IV (09:26)
[2024-08-24] MEDS: dexamethasone 4 mg/mL INJ 5 mL IVP (09:29)
[2024-08-24] MEDS: palonosetron 0.25 mg/5 mL SDV IVP (09:34)
[2024-08-24] MEDS: leucovorin 840 MG in dextrose 5% 250 ML 62.5 MG IV (10:08)
[2024-08-24] MEDS: oxaliplatin 180 MG in dextrose 5% 250 ML 143 MG IV (10:09)
[2024-08-24] MEDS: fluorouraciL 5,050 MG, elastomeric pump 1 PUMP in sodium chloride 0.9% (100 ml) 129 ML IV (12:34)
[2024-08-24 12:35] VITALS: BP 145/78; PULSE 74; RESP 18; TEMP 36.6; O2SAT 98
[2024-09-07 07:31] LABS: Basophils % 0.7 %; Eosinophils # 0.1 10^3/uL (0.0-0.8); Eosinophils % 2.7 %; Hematocrit 40.7 % (36-47); Lymphocytes # 0.7 10^3/uL (0.8-4.8); Lymphocytes % 22.3 %; Mean Corpuscular HGB Conc 32.7 g/dL (30-55); Mean Corpuscular Hemoglobin 31.1 pg (27-33); Mean Corpuscular Volume 95.1 fl (85-98); Mean Platelet Volume 13.4 fL (7.4-10.4); Monocytes # 0.4 10^3/uL (0.2-0.9); Monocytes % 11.6 %; Neutrophils # 1.89 10^3/uL (1.8-7.7); Neutrophils % 62.7 %; Nucleated Red Blood Cells % 0 %; Platelet Count 46 10^3/cmm (157-399); Red Blood Count 4.28 10^6/uL (3.85-5.65); Red Cell Distribution Width 14.1 % (12.1-15.1); White Blood Count 3.01 10^3/uL (3.29-11.43)
[2024-09-07 08:02] LABS: Carcinoembryonic Antigen 3.4 ng/mL (0.0-4.7)
[2024-09-07 08:14] LABS: Alanine Aminotransferase 44 U/L (0-33); Albumin Level 3.9 g/dL (3.5-5.2); Alkaline Phosphatase 68 U/L (35-105); Anion Gap 13.6 (5-19); Aspartate Amino Transferase 54 U/L (0-32); Blood Urea Nitrogen 6 mg/dL (8-23); Carbon Dioxide 23 mmol/L (22-29); Chloride 107 mmol/L (98-107); Creatinine Clr Calc Pharmacy 141.0437; Globulin 2.3 g/dL (1.3-4.6); Glucose 131 mg/dL (65-115); Lactate Dehydrogenase 224 U/L (135-214); Magnesium 1.7 mg/dL (1.7-2.3); Osmolality Calculated 289 mOsm/kg (285-295); Potassium 3.6 mmol/L (3.5-5.1); Sodium 140 mmol/L (136-145); Total Bilirubin 0.5 mg/dL (0.15-1.2); Total Protein 6.2 g/dL (6.6-8.7)
[2024-09-14 07:32] LABS: Basophils % 0.6 %; Eosinophils # 0.1 10^3/uL (0.0-0.8); Hematocrit 40.8 % (36-47); Lymphocytes # 1.5 10^3/uL (0.8-4.8); Lymphocytes % 31.7 %; Mean Corpuscular HGB Conc 32.8 g/dL (30-55); Mean Corpuscular Hemoglobin 31.3 pg (27-33); Mean Corpuscular Volume 95.3 fl (85-98); Mean Platelet Volume 12.2 fL (7.4-10.4); Monocytes # 0.5 10^3/uL (0.2-0.9); Monocytes % 9.3 %; Neutrophils % 56.2 %; Nucleated Red Blood Cells % 0 %; Platelet Count 64 10^3/cmm (157-399); Red Blood Count 4.28 10^6/uL (3.85-5.65); Red Cell Distribution Width 14.7 % (12.1-15.1); White Blood Count 4.82 10^3/uL (3.29-11.43)
[2024-09-14 07:49] LABS: Alanine Aminotransferase 49 U/L (0-33); Albumin Level 3.9 g/dL (3.5-5.2); Alkaline Phosphatase 65 U/L (35-105); Aspartate Amino Transferase 46 U/L (0-32); Blood Urea Nitrogen 6 mg/dL (8-23); Calcium 9.2 mg/dL (8.5-10.5); Carbon Dioxide 24 mmol/L (22-29); Chloride 105 mmol/L (98-107); Creatinine Clr Calc Pharmacy 140.7092; Globulin 2.3 g/dL (1.3-4.6); Glucose 113 mg/dL (65-115); Osmolality Calculated 290 mOsm/kg (285-295); Sodium 141 mmol/L (136-145); Total Bilirubin 0.5 mg/dL (0.15-1.2); Total Protein 6.2 g/dL (6.6-8.7)
[2024-09-14 07:58] LABS: Anion Gap 15.3 (5-19); Potassium 3.3 mmol/L (3.5-5.1)
[2024-09-14] MEDS: dextrose 5% 250 ML 75 ML IV (08:52)
[2024-09-14] MEDS: dexamethasone 4 mg/mL INJ 5 mL IVP (08:56)
[2024-09-14] MEDS: palonosetron 0.25 mg/5 mL SDV IVP (08:56)
[2024-09-14] MEDS: leucovorin 840 MG in dextrose 5% 250 ML 62.5 MG IV (09:35)
[2024-09-14] MEDS: oxaliplatin 180 MG in dextrose 5% 250 ML 143 MG IV (09:36)
[2024-09-14 12:30] VITALS: BP 146/84; PULSE 68; RESP 18; TEMP 36.6; O2SAT 99
[2024-09-14] MEDS: fluorouraciL 5,050 MG, elastomeric pump 1 PUMP in sodium chloride 0.9% (100 ml) 129 ML IV (12:32)
[2024-09-16 09:23] VITALS: BP 138/82; PULSE 68; RESP 16; TEMP 36.6; O2SAT 96
[2024-09-21 08:37] LABS: Basophils % 0.1 %; Eosinophils % 0.3 %; Hematocrit 42.9 % (36-47); Lymphocytes # 1.2 10^3/uL (0.8-4.8); Lymphocytes % 13.4 %; Mean Corpuscular HGB Conc 31.9 g/dL (30-55); Mean Corpuscular Volume 97.1 fl (85-98); Mean Platelet Volume 12.1 fL (7.4-10.4); Monocytes # 0.5 10^3/uL (0.2-0.9); Monocytes % 5.9 %; Neutrophils # 7.23 10^3/uL (1.8-7.7); Neutrophils % 78.5 %; Nucleated Red Blood Cells % 0 %; Platelet Count 60 10^3/cmm (157-399); Red Blood Count 4.42 10^6/uL (3.85-5.65); Red Cell Distribution Width 14.9 % (12.1-15.1); White Blood Count 9.22 10^3/uL (3.29-11.43)
[2024-09-21 10:24] LABS: Alkaline Phosphatase 69 U/L (35-105); Blood Urea Nitrogen 8 mg/dL (8-23); Calcium 8.6 mg/dL (8.5-10.5); Carbon Dioxide 22 mmol/L (22-29); Chloride 105 mmol/L (98-107); Creatinine Clr Calc Pharmacy 118.9287; Globulin 2.4 g/dL (1.3-4.6); Glomerular Filtration Rate 101.3 mL/min (90-130); Osmolality Calculated 289 mOsm/kg (285-295); Sodium 139 mmol/L (136-145); Total Bilirubin 0.5 mg/dL (0.15-1.2)
[2024-09-21 10:28] LABS: Alanine Aminotransferase 92 U/L (0-33); Anion Gap 15.6 (5-19); Aspartate Amino Transferase 69 U/L (0-32); Glucose 148 mg/dL (65-115); Potassium 3.6 mmol/L (3.5-5.1); Total Protein 6.4 g/dL (6.6-8.7)
== END 2024-09-22 23:59 | disposition home or self-care (01) ==
PROVIDERS: Internal Medicine Medical Oncology; Nurse Practitioner Family; PCP Registered Nurse; Visit Provider Internal Medicine Hematology & Oncology
DX: C20 Malignant neoplasm of rectum (principal); Z53.9 Procedure and treatment not carried out, unspecified reason
CPT/HCPCS: 36591; 80053; 82378; 83615; 83735; 85025; 96368; 96375; 96413; 96415; 96416; 96417; 96523; J0640; J1100; J2469; J7060; J9190; J9263

== ENCOUNTER 2024-10-19 11:00 | Oncology outpatient (recurring) (ONCR) | payer OTHER, SELFPAY ==
[2024-09-28 07:31] LABS: Basophils % 0.1 %; Eosinophils % 0.4 %; Lymphocytes # 1.5 10^3/uL (0.8-4.8); Lymphocytes % 18.8 %; Mean Corpuscular HGB Conc 32.3 g/dL (30-55); Mean Corpuscular Hemoglobin 31.5 pg (27-33); Mean Corpuscular Volume 97.5 fl (85-98); Mean Platelet Volume 10.9 fL (7.4-10.4); Monocytes # 0.6 10^3/uL (0.2-0.9); Monocytes % 7.1 %; Neutrophils # 5.75 10^3/uL (1.8-7.7); Neutrophils % 73.2 %; Nucleated Red Blood Cells % 0 %; Platelet Count 48 10^3/cmm (157-399); Red Blood Count 4.41 10^6/uL (3.85-5.65); Red Cell Distribution Width 15.5 % (12.1-15.1); White Blood Count 7.86 10^3/uL (3.29-11.43)
[2024-09-28 07:50] LABS: Alanine Aminotransferase 69 U/L (0-33); Alkaline Phosphatase 61 U/L (35-105); Aspartate Amino Transferase 41 U/L (0-32); Blood Urea Nitrogen 13 mg/dL (8-23); Calcium 9.2 mg/dL (8.5-10.5); Carbon Dioxide 23 mmol/L (22-29); Chloride 107 mmol/L (98-107); Creatinine Clr Calc Pharmacy 120.5991; Globulin 1.8 g/dL (1.3-4.6); Glomerular Filtration Rate 101.3 mL/min (90-130); Glucose 112 mg/dL (65-115); Osmolality Calculated 291 mOsm/kg (285-295); Sodium 140 mmol/L (136-145); Total Bilirubin 0.8 mg/dL (0.15-1.2); Total Protein 5.8 g/dL (6.6-8.7)
[2024-09-28 07:55] LABS: Anion Gap 13.5 (5-19); Potassium 3.5 mmol/L (3.5-5.1)
[2024-10-05 07:42] LABS: Basophils % 0.1 %; Eosinophils # 0.1 10^3/uL (0.0-0.8); Eosinophils % 0.8 %; Hematocrit 43.7 % (36-47); Lymphocytes # 1.9 10^3/uL (0.8-4.8); Lymphocytes % 23.8 %; Mean Corpuscular HGB Conc 32.5 g/dL (30-55); Mean Corpuscular Hemoglobin 31.6 pg (27-33); Mean Corpuscular Volume 97.3 fl (85-98); Mean Platelet Volume 10.7 fL (7.4-10.4); Monocytes # 0.6 10^3/uL (0.2-0.9); Monocytes % 7.1 %; Neutrophils # 5.39 10^3/uL (1.8-7.7); Neutrophils % 67.4 %; Nucleated Red Blood Cells % 0 %; Platelet Count 65 10^3/cmm (157-399); Red Blood Count 4.49 10^6/uL (3.85-5.65); Red Cell Distribution Width 15.6 % (12.1-15.1); White Blood Count 7.99 10^3/uL (3.29-11.43)
[2024-10-05 08:00] LABS: Carcinoembryonic Antigen 3.8 ng/mL (0.0-4.7)
[2024-10-05 08:11] LABS: Alanine Aminotransferase 76 U/L (0-33); Albumin Level 3.8 g/dL (3.5-5.2); Alkaline Phosphatase 60 U/L (35-105); Aspartate Amino Transferase 57 U/L (0-32); Blood Urea Nitrogen 10 mg/dL (8-23); Calcium 8.7 mg/dL (8.5-10.5); Carbon Dioxide 24 mmol/L (22-29); Chloride 107 mmol/L (98-107); Creatinine Clr Calc Pharmacy 120.5991; Globulin 2.3 g/dL (1.3-4.6); Glomerular Filtration Rate 101.3 mL/min (90-130); Glucose 96 mg/dL (65-115); Osmolality Calculated 291 mOsm/kg (285-295); Sodium 141 mmol/L (136-145); Total Bilirubin 0.6 mg/dL (0.15-1.2); Total Protein 6.1 g/dL (6.6-8.7)
[2024-10-05 08:13] LABS: Anion Gap 13.7 (5-19); Potassium 3.7 mmol/L (3.5-5.1)
[2024-10-05 08:24] VITALS: BP 131/81; PULSE 62; RESP 17; TEMP 35.9; O2SAT 96
[2024-10-05] MEDS: dextrose 5% 250 ML 75 ML IV (08:51)
[2024-10-05] MEDS: dexamethasone 4 mg/mL INJ 5 mL IVP (08:52)
[2024-10-05] MEDS: palonosetron 0.25 mg/5 mL SDV IVP (09:01)
[2024-10-05] MEDS: leucovorin 840 MG in dextrose 5% 250 ML 62.5 MG IV (09:40)
[2024-10-05] MEDS: DEXTROSE 5% IV (09:40)
[2024-10-05] MEDS: OXALIPLATIN IV (09:40)
[2024-10-05] MEDS: fluorouraciL 5,050 MG, elastomeric pump 1 PUMP in sodium chloride 0.9% (100 ml) 129 ML IV (12:18)
[2024-10-05 12:30] VITALS: BP 140/74; PULSE 78; RESP 17; TEMP 36.4; O2SAT 98
[2024-10-07 10:58] VITALS: BP 149/78; PULSE 66; RESP 18; TEMP 36.4; O2SAT 97
[2024-10-17 08:09] LABS: Basophils % 0.1 %; Eosinophils % 0.3 %; Hematocrit 42.1 % (36-47); Lymphocytes # 1.5 10^3/uL (0.8-4.8); Lymphocytes % 20.8 %; Mean Corpuscular HGB Conc 32.1 g/dL (30-55); Mean Corpuscular Hemoglobin 31.5 pg (27-33); Mean Corpuscular Volume 98.4 fl (85-98); Monocytes # 0.5 10^3/uL (0.2-0.9); Monocytes % 6.2 %; Neutrophils # 5.23 10^3/uL (1.8-7.7); Neutrophils % 72.2 %; Nucleated Red Blood Cells % 0 %; Platelet Count 52 10^3/cmm (157-399); Red Blood Count 4.28 10^6/uL (3.85-5.65); Red Cell Distribution Width 15.7 % (12.1-15.1); White Blood Count 7.25 10^3/uL (3.29-11.43)
[2024-10-17 08:11] LABS: Alanine Aminotransferase 75 U/L (0-33); Albumin Level 3.8 g/dL (3.5-5.2); Alkaline Phosphatase 54 U/L (35-105); Anion Gap 13.4 (5-19); Aspartate Amino Transferase 53 U/L (0-32); Blood Urea Nitrogen 12 mg/dL (8-23); Carbon Dioxide 25 mmol/L (22-29); Chloride 104 mmol/L (98-107); Creatinine Clr Calc Pharmacy 102.7445; Globulin 2.1 g/dL (1.3-4.6); Glomerular Filtration Rate 84.8 mL/min (90-130); Glucose 131 mg/dL (65-115); Osmolality Calculated 290 mOsm/kg (285-295); Potassium 3.4 mmol/L (3.5-5.1); Sodium 139 mmol/L (136-145); Total Protein 5.9 g/dL (6.6-8.7)
[2024-10-17] MEDS: dextrose 5% 250 ML 75 ML IV (08:59)
[2024-10-17] MEDS: palonosetron 0.25 mg/5 mL SDV IVP (09:03)
[2024-10-17] MEDS: dexamethasone 4 mg/mL INJ 5 mL IVP (09:12)
[2024-10-17] MEDS: DEXTROSE 5% IV (10:17)
[2024-10-17] MEDS: leucovorin 840 MG in dextrose 5% 250 ML 62.5 MG IV (10:17)
[2024-10-17] MEDS: OXALIPLATIN IV (10:17)
[2024-10-17] MEDS: fluorouraciL 5,050 MG, elastomeric pump 1 PUMP in sodium chloride 0.9% (100 ml) 129 ML IV (12:49)
[2024-10-17 13:00] VITALS: BP 166/79; PULSE 76; RESP 17; TEMP 35.7; O2SAT 96
[2024-10-19 11:18] VITALS: BP 151/82; PULSE 66; RESP 17; TEMP 35.9; O2SAT 97
== END 2024-10-22 23:59 | disposition home or self-care (01) ==
PROVIDERS: Nurse Practitioner Family; PCP Registered Nurse; Visit Provider Internal Medicine Hematology & Oncology
DX: Z45.1 Encounter for adjustment and management of infusion pump (principal); Z53.9 Procedure and treatment not carried out, unspecified reason
CPT/HCPCS: 80053; 82378; 85025; 96365; 96366; 96367; 96368; 96375; 96413; 96415; 96416; 96417; 96523; J0640; J1100; J2469; J7060; J9190; J9263

== ENCOUNTER 2024-10-25 14:35 | Outpatient (CLI) | payer OTHER, SELFPAY ==
--- NOTE | 2024-10-25 14:39 | MM_ITS ---
WS: [id number] BILATERAL 3D TOMOSYNTHESIS DIGITAL SCREENING MAMMOGRAPHY WITH CAD CLINICAL INFORMATION: SCREENING HISTORY: Screening mammogram. No current complaints. COMPARISON: 2022 TECHNIQUE: Bilateral CC and MLO views. FINDINGS: Scattered fibroglandular densities bilaterally. No suspicious focal mass, asymmetry, calcifications, or architectural distortion. No evidence of malignancy. A few incidental punctate calcifications. MM/MM scr tomosynthesis [id number] IMPRESSION: DENSITY: There are scattered areas of fibroglandular density. BI-RADS: 2 - Benign. FOLLOW UP: 1 Year Follow-up Recommend return to annual screening mammography.
== END 2024-10-25 14:36 | disposition home or self-care (01) ==
LOC: RAD 14:36
PROVIDERS: PCP Registered Nurse; Visit Provider Nurse Practitioner Women's Health
DX: Z12.31 Encounter for screening mammogram for malignant neoplasm of breast (principal); R92.323 Mammographic fibroglandular density, bilateral breasts; R92.1 Mammographic calcification found on diagnostic imaging of breast
CPT/HCPCS: 77063; 77067

== ENCOUNTER 2024-11-22 07:45 | Oncology outpatient (recurring) (ONCR) | payer OTHER, SELFPAY ==
[2024-10-31 09:10] LABS: Basophils % 0.1 %; Eosinophils % 0.1 %; Hematocrit 40.6 % (36-47); Lymphocytes # 1.8 10^3/uL (0.8-4.8); Lymphocytes % 26.9 %; Mean Corpuscular HGB Conc 32.5 g/dL (30-55); Mean Corpuscular Hemoglobin 31.6 pg (27-33); Mean Corpuscular Volume 97.1 fl (85-98); Mean Platelet Volume 12.2 fL (7.4-10.4); Monocytes # 0.6 10^3/uL (0.2-0.9); Monocytes % 8.2 %; Neutrophils # 4.29 10^3/uL (1.8-7.7); Neutrophils % 63.8 %; Nucleated Red Blood Cells % 0 %; Platelet Count 44 10^3/cmm (157-399); Red Blood Count 4.18 10^6/uL (3.85-5.65); Red Cell Distribution Width 15.7 % (12.1-15.1); White Blood Count 6.73 10^3/uL (3.29-11.43)
[2024-10-31 09:54] LABS: Carcinoembryonic Antigen 5.2 ng/mL (0.0-4.7)
[2024-10-31 10:07] LABS: Alanine Aminotransferase 105 U/L (0-33); Albumin Level 3.7 g/dL (3.5-5.2); Alkaline Phosphatase 71 U/L (35-105); Anion Gap 14.3 (5-19); Aspartate Amino Transferase 82 U/L (0-32); Blood Urea Nitrogen 11 mg/dL (8-23); Calcium 9.9 mg/dL (8.5-10.5); Carbon Dioxide 26 mmol/L (22-29); Chloride 104 mmol/L (98-107); Globulin 2.2 g/dL (1.3-4.6); Glomerular Filtration Rate 84.8 mL/min (90-130); Glucose 107 mg/dL (65-115); Osmolality Calculated 292 mOsm/kg (285-295); Potassium 3.3 mmol/L (3.5-5.1); Sodium 141 mmol/L (136-145); Total Bilirubin 0.9 mg/dL (0.15-1.2); Total Protein 5.9 g/dL (6.6-8.7)
--- NOTE | 2024-11-02 09:51 | ONCRAD EPV_ITS ---
Radiation Oncology Established Patient Visit Patient: Leandro Dominique [id number] : 1960 Age: 64 Sex: Female Dictated by: Dr. Aileen Acosta Date of Service: 11/02/2024 Referring Physician(s) : Diagnosis: C20 - Malignant neoplasm of rectum, Diagnosed 07/14/2024 (Active) Radiotherapy to Date: NONE Current History: Patient returns today after having finished her neoadjuvant chemotherapy. 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 She is here today to undergo simulation and begin her combined modality therapy next week. She is doing well in terms of her bowel movements. She has had problems with her platelets and she has been on prednisone for these. Current Medications: Lipitor, lisinopril-hydroCHLOROthiazide, meloxicam, prempro. Allergies: Penicillins, Erythromycin, Sulfa Antibiotics, Percocet and predniSONE. Current Complaints / Review of Systems: . Vital Signs: Performed on 11/02/2024 9:31 AM BMI - 38.092 kg/m2 (high), Height - 66 in, Weight - 236.0 lbs, Temperature - 96.9 f, Pulse - 76 /min, Respiration - 16 /min, O2 Sat - 97 %, Pain - 0, Fatigue - 0 and BP - 140/ 91 mm(hg)(/high). Physical Exam: General: Alert and oriented x 3. No acute distress. HEENT: Normocephalic, atraumatic. Extraocular Movements Intact: Pupils Equal, Round, Reactive to Light LUNGS respiratory rate is regular nonlabored HEART: Regular rate and rhythm ABDOMEN: Moderately protuberant android pattern EXTREMITIES: Without obvious edema or lymphedema. NEUROLOGIC: Alert and orient x 3. Gait and speech within normal limits Psych: Affect appropriate for current situation Performance Status: 100 Lab: None pending. Pathology: Primary, c20 - malignant neoplasm of rectum, Diagnosed 07/14/2024 (active) and Primary, d69.6 - thrombocytopenia, unspecified, Diagnosed 02/05/2022 (active) . Imaging: See HPI Impression: Adenocarcinoma the rectum Plan: At this point she is ready to start her combined modality therapy. I reviewed with her the simulation process. We discussed the daily treatment regiment. We reviewed the risks and side effects both acute and long-term. At this point she is ready to get started and she will undergo simulation today. Will then coordinate starting her treatments next week as she is picking up her capecitabine today. Signed by: 11/02/2024 9:49:59 AM <<Signature on File>> Time spent with patient: 20 CPT Code: CPT Code:
[2024-11-07 08:17] LABS: Basophils % 0.6 %; Eosinophils % 0.2 %; Hematocrit 43.1 % (36-47); Lymphocytes # 1.1 10^3/uL (0.8-4.8); Lymphocytes % 22.9 %; Mean Corpuscular HGB Conc 33.2 g/dL (30-55); Mean Corpuscular Hemoglobin 32.2 pg (27-33); Mean Corpuscular Volume 97.1 fl (85-98); Mean Platelet Volume 11.4 fL (7.4-10.4); Monocytes # 0.6 10^3/uL (0.2-0.9); Monocytes % 12.1 %; Neutrophils # 3.06 10^3/uL (1.8-7.7); Neutrophils % 63.6 %; Nucleated Red Blood Cells % 0 %; Platelet Count 86 10^3/cmm (157-399); Red Blood Count 4.44 10^6/uL (3.85-5.65); Red Cell Distribution Width 15.7 % (12.1-15.1); White Blood Count 4.81 10^3/uL (3.29-11.43)
[2024-11-07 08:28] LABS: Alanine Aminotransferase 64 U/L (0-33); Albumin Level 3.7 g/dL (3.5-5.2); Alkaline Phosphatase 84 U/L (35-105); Anion Gap 14.5 (5-19); Aspartate Amino Transferase 79 U/L (0-32); Blood Urea Nitrogen 4 mg/dL (8-23); Calcium 9.3 mg/dL (8.5-10.5); Carbon Dioxide 22 mmol/L (22-29); Chloride 102 mmol/L (98-107); Creatinine Clr Calc Pharmacy 100.9838; Globulin 2.7 g/dL (1.3-4.6); Glomerular Filtration Rate 84.8 mL/min (90-130); Glucose 125 mg/dL (65-115); Osmolality Calculated 278 mOsm/kg (285-295); Potassium 3.5 mmol/L (3.5-5.1); Sodium 135 mmol/L (136-145); Total Protein 6.4 g/dL (6.6-8.7)
--- NOTE | 2024-11-15 10:46 | ONCRAD TMN_ITS ---
Radiation Oncology Weekly Treatment Management Patient: Catina Reeves MR#: [id number] : 1960 Attending Physician: Dr. Aileen Acosta Date of Service: 11/15/2024 Fractions: 2 out of 25 Referring Physician(s) : Diagnosis: C20 - Malignant neoplasm of rectum, Diagnosed 07/14/2024 (Active) D69.6 - Thrombocytopenia, unspecified, Diagnosed 02/05/2022 (Active) Radiotherapy to date: Course: rectum/pelvis, Treatment Site: [id number], Ref. ID: [id number], Energy: 15X, Dose/Fx (cGy): 200, #Fx: , Dose Correction (cGy): 0, Total Dose Delivered (cGy): 400, Start Date: 11/14/2024, Elapsed Days: 1 Reason for visit: The patient is being seen today as part of their regularly scheduled weekly on treatment visits to assess for acute toxicities from radiotherapy. Review of Systems: Patient had a headache yesterday after treatment Vital Signs: Performed on 11/15/2024 8:11 AM BMI - 38.059 kg/m2 (high), Height - 66 in, Weight - 235.8 lbs, Temperature - 97.5 f, Pulse - 79 /min, Respiration - 17 /min, O2 Sat - 97 %, Pain - 0, Fatigue - 0 and BP - 139/ 83 mm(hg). Physical Exam: No changes on exam Imaging: Radiation therapy imaging related to accurate target localization (i.e. KV, MV and CBCT) was reviewed. Appropriate changes, if any, were made to ensure treatment accuracy. Plan: Will continue with her treatments as planned Signed by: Dr. Aileen Acosta 11/15/2024 10:44:13 AM
[2024-11-22 07:58] LABS: Basophils % 0.8 %; Eosinophils % 0.4 %; Hematocrit 41.1 % (36-47); Lymphocytes # 0.6 10^3/uL (0.8-4.8); Lymphocytes % 22.8 %; Mean Corpuscular HGB Conc 32.1 g/dL (30-55); Mean Corpuscular Hemoglobin 32.2 pg (27-33); Mean Corpuscular Volume 100.2 fl (85-98); Mean Platelet Volume 11.5 fL (7.4-10.4); Monocytes # 0.3 10^3/uL (0.2-0.9); Monocytes % 10.8 %; Neutrophils # 1.62 10^3/uL (1.8-7.7); Neutrophils % 64.8 %; Nucleated Red Blood Cells % 0 %; Platelet Count 73 10^3/cmm (157-399); Red Cell Distribution Width 15.6 % (12.1-15.1)
[2024-11-22 08:13] LABS: Alanine Aminotransferase 42 U/L (0-33); Albumin Level 3.8 g/dL (3.5-5.2); Alkaline Phosphatase 84 U/L (35-105); Anion Gap 14.8 (5-19); Aspartate Amino Transferase 65 U/L (0-32); Blood Urea Nitrogen 4 mg/dL (8-23); Calcium 9.1 mg/dL (8.5-10.5); Carbon Dioxide 22 mmol/L (22-29); Chloride 104 mmol/L (98-107); Creatinine Clr Calc Pharmacy 120.4254; Globulin 2.7 g/dL (1.3-4.6); Glomerular Filtration Rate 101.3 mL/min (90-130); Glucose 125 mg/dL (65-115); Osmolality Calculated 282 mOsm/kg (285-295); Potassium 3.8 mmol/L (3.5-5.1); Sodium 137 mmol/L (136-145); Total Bilirubin 0.9 mg/dL (0.15-1.2); Total Protein 6.5 g/dL (6.6-8.7)
--- NOTE | 2024-11-22 09:10 | ONCRAD TMN_ITS ---
Radiation Oncology Weekly Treatment Management Patient: Leandro Dominique> MR#: [id number] : 1960> Attending Physician: Dr. Aileen Acosta Date of Service: 11/22/2024 Fractions: 6 out of 25 Referring Physician(s) : Diagnosis: C20 - Malignant neoplasm of rectum, Diagnosed 07/14/2024 (Active) D69.6 - Thrombocytopenia, unspecified, Diagnosed 02/05/2022 (Active) Radiotherapy to date: Course: rectum/pelvis, Treatment Site: [id number], Ref. ID: [id number], Energy: 15X, Dose/Fx (cGy): 200, #Fx: , Dose Correction (cGy): 0, Total Dose Delivered (cGy): 1,200, Start Date: 11/14/2024, End Date: 11/22/2024, Elapsed Days: 8 Reason for visit: The patient is being seen today as part of their regularly scheduled weekly on treatment visits to assess for acute toxicities from radiotherapy. Review of Systems: Patient said that she knows her right arm became sore on Thursday. Since that time she has developed some swelling in the hand and now has a bruise that extends down her bicep. Vital Signs: Performed on 11/22/2024 8:54 AM BMI - 38.188 kg/m2 (high), Height - 66 in, Weight - 236.6 lbs, Temperature - 97.3 f, Pulse - 79 /min, Respiration - 17 /min, O2 Sat - 96 %, Pain - 0, Fatigue - 0 and BP - 129/ 78 mm(hg). Physical Exam: On exam that right arm is swollen and there is a bruise down the medial portion of her bicep. Imaging: Radiation therapy imaging related to accurate target localization (i.e. KV, MV and CBCT) was reviewed. Appropriate changes, if any, were made to ensure treatment accuracy. Plan: Will continue with her treatments as planned. She has seen medical oncology today. They will proceed with ordering imaging and starting on her blood thinner. Signed by: Dr. Aileen Acosta 11/22/2024 9:09:22 AM
== END 2024-11-22 23:59 | disposition home or self-care (01) ==
PROVIDERS: Internal Medicine Medical Oncology; Nurse Practitioner Family; PCP Registered Nurse; Visit Provider Radiology Radiation Oncology
DX: C20 Malignant neoplasm of rectum; Z53.9 Procedure and treatment not carried out, unspecified reason; Z51.0 Encounter for antineoplastic radiation therapy; D69.6 Thrombocytopenia, unspecified; Z79.899 Other long term (current) drug therapy; Z95.828 Presence of other vascular implants and grafts
CPT/HCPCS: 36591; 77300; 77301; 77334; 77338; 77386; 77470; 80053; 82378; 85025

== ENCOUNTER 2024-11-22 10:45 | Outpatient (CLI) | payer OTHER, SELFPAY ==
--- NOTE | 2024-11-22 11:00 | USCV_ITS ---
Catina Reeves Age: 64 Gender: F : 1960 Exam Date: 11/22/2024 10:53 Ordering Phys: Francisca Yao NP Technologist: ETHAN Exam Location: [facility] [place] Indication: RT Bruising anterior bicep. HISTORY: Upper extremity bruising PROCEDURES: Venous duplex imaging was performed in only the right upper extremity. The following venous structures were evaluated: internal jugular vein, subclavian vein, axillary vein, and brachial veins. In addition, the basilic vein, cephalic vein, radial vein, and ulnar vein. Serial compression, augmentation maneuvers, and spectral Doppler flow evaluation were performed. FINDINGS: Appearance of a nonoccluding acute appearing DVT in the RT IJV. All other veins appear patent and without DVT at this time CONCLUSIONS Non occlusive acute DVT in RT IJV. Remainder RUE patent Prelim report to Francisca Yao Np at time of exam by sample color maker. Patient will return to clinic Wilbert Bazzi MD (Electronically Signed) Final Date: 22 November 2024 18:01 S
== END 2024-11-22 10:46 | disposition home or self-care (01) ==
LOC: RAD 10:45
PROVIDERS: PCP Registered Nurse; Visit Provider Nurse Practitioner
DX: I82.C11 Acute embolism and thrombosis of right internal jugular vein (principal); C20 Malignant neoplasm of rectum; M79.89 Other specified soft tissue disorders
CPT/HCPCS: 93971

== ENCOUNTER 2024-12-19 07:42 | Oncology outpatient (recurring) (ONCR) | payer OTHER, SELFPAY ==
[2024-11-29 08:28] LABS: Basophils % 0.4 %; Eosinophils % 0.9 %; Hematocrit 40.6 % (36-47); Lymphocytes # 0.5 10^3/uL (0.8-4.8); Lymphocytes % 20.9 %; Mean Corpuscular Hemoglobin 32.5 pg (27-33); Mean Corpuscular Volume 98.5 fl (85-98); Mean Platelet Volume 11.6 fL (7.4-10.4); Monocytes # 0.3 10^3/uL (0.2-0.9); Neutrophils # 1.48 10^3/uL (1.8-7.7); Neutrophils % 65.8 %; Nucleated Red Blood Cells % 0 %; Platelet Count 63 10^3/cmm (157-399); Red Blood Count 4.12 10^6/uL (3.85-5.65); Red Cell Distribution Width 15.8 % (12.1-15.1); White Blood Count 2.25 10^3/uL (3.29-11.43)
[2024-11-29 08:46] LABS: Alanine Aminotransferase 43 U/L (0-33); Albumin Level 3.9 g/dL (3.5-5.2); Alkaline Phosphatase 84 U/L (35-105); Anion Gap 17.8 (5-19); Aspartate Amino Transferase 62 U/L (0-32); Blood Urea Nitrogen 5 mg/dL (8-23); Calcium 9.3 mg/dL (8.5-10.5); Carbon Dioxide 21 mmol/L (22-29); Chloride 104 mmol/L (98-107); Globulin 2.6 g/dL (1.3-4.6); Glucose 88 mg/dL (65-115); Osmolality Calculated 285 mOsm/kg (285-295); Potassium 3.8 mmol/L (3.5-5.1); Sodium 139 mmol/L (136-145); Total Bilirubin 0.8 mg/dL (0.15-1.2); Total Protein 6.5 g/dL (6.6-8.7)
--- NOTE | 2024-11-29 09:10 | ONCRAD TMN_ITS ---
Radiation Oncology Weekly Treatment Management Patient: Leandro Dominique> MR#: [id number] : 1960> Attending Physician: Dr. Aileen Acosta Date of Service: 11/29/2024 Fractions 10 out of 25 Referring Physician(s) : Diagnosis: C20 - Malignant neoplasm of rectum, Diagnosed 07/14/2024 (Active) D69.6 - Thrombocytopenia, unspecified, Diagnosed 02/05/2022 (Active) Radiotherapy to date: Course: rectum/pelvis, Treatment Site: [id number], Ref. ID: [id number], Energy: 15X, Dose/Fx (cGy): 200, #Fx: , Dose Correction (cGy): 0, Total Dose Delivered (cGy): 2,000, Start Date: 11/14/2024, End Date: 11/29/2024, Elapsed Days: 15 Reason for visit: The patient is being seen today as part of their regularly scheduled weekly on treatment visits to assess for acute toxicities from radiotherapy. Review of Systems: Patient has not had any diarrhea. She is actually had a little bit of constipation and had to add MiraLAX and Colace to her regiment. She has had some crampy abdominal pain. Vital Signs: Performed on 11/29/2024 8:25 AM BMI - 38.092 kg/m2 (high), Height - 66 in, Weight - 236 lbs, Temperature - 96.5 f, Pulse - 69 /min, Respiration - 18 /min, O2 Sat - 98 %, Pain - 0, Fatigue - 0 and BP - 133/ 91 mm(hg)(/high). Physical Exam: No changes on exam Imaging: Radiation therapy imaging related to accurate target localization (i.e. KV, MV and CBCT) was reviewed. Appropriate changes, if any, were made to ensure treatment accuracy. Plan: Will continue with her treatments as planned. She did get her port removed secondary to the phlebitis she developed. Signed by: Dr. Aileen Acosta 11/29/2024 9:08:59 AM
[2024-12-05 08:17] LABS: Basophils % 0.4 %; Eosinophils # 0.1 10^3/uL (0.0-0.8); Eosinophils % 2.1 %; Hematocrit 41.6 % (36-47); Lymphocytes # 0.5 10^3/uL (0.8-4.8); Lymphocytes % 21.3 %; Mean Corpuscular HGB Conc 32.7 g/dL (30-55); Mean Corpuscular Hemoglobin 32.8 pg (27-33); Mean Corpuscular Volume 100.2 fl (85-98); Mean Platelet Volume 11.8 fL (7.4-10.4); Monocytes # 0.4 10^3/uL (0.2-0.9); Monocytes % 15.3 %; Neutrophils # 1.42 10^3/uL (1.8-7.7); Neutrophils % 60.5 %; Nucleated Red Blood Cells % 0 %; Platelet Count 61 10^3/cmm (157-399); Red Blood Count 4.15 10^6/uL (3.85-5.65); Red Cell Distribution Width 16.1 % (12.1-15.1); White Blood Count 2.35 10^3/uL (3.29-11.43)
[2024-12-05 08:33] LABS: Alanine Aminotransferase 41 U/L (0-33); Alkaline Phosphatase 73 U/L (35-105); Anion Gap 17.5 (5-19); Aspartate Amino Transferase 62 U/L (0-32); Blood Urea Nitrogen 6 mg/dL (8-23); Calcium 9.5 mg/dL (8.5-10.5); Carbon Dioxide 21 mmol/L (22-29); Chloride 100 mmol/L (98-107); Creatinine Clr Calc Pharmacy 119.7642; Globulin 2.6 g/dL (1.3-4.6); Glomerular Filtration Rate 101.3 mL/min (90-130); Glucose 80 mg/dL (65-115); Osmolality Calculated 277 mOsm/kg (285-295); Potassium 3.5 mmol/L (3.5-5.1); Sodium 135 mmol/L (136-145); Total Bilirubin 0.9 mg/dL (0.15-1.2); Total Protein 6.6 g/dL (6.6-8.7)
--- NOTE | 2024-12-06 08:36 | ONCRAD TMN_ITS ---
Radiation Oncology Weekly Treatment Management Patient: Catina Reeves #: [id number] : 1960 Attending Physician: Dr. Aileen Acosta Date of Service: 12/06/2024 Fractions: 13 out of 25 Referring Physician(s) : Diagnosis: C20 - Malignant neoplasm of rectum, Diagnosed 07/14/2024 (Active) D69.6 - Thrombocytopenia, unspecified, Diagnosed 02/05/2022 (Active) Radiotherapy to date: Course: rectum/pelvis, Treatment Site: [id number], Ref. ID: [id number], Energy: 15X, Dose/Fx (cGy): 200, #Fx: , Dose Correction (cGy): 0, Total Dose Delivered (cGy): 2,600, Start Date: 11/14/2024, Elapsed Days: Reason for visit: The patient is being seen today as part of their regularly scheduled weekly on treatment visits to assess for acute toxicities from radiotherapy. Review of Systems: Patient is doing well this week. She has no complaints today. Vital Signs: Performed on 12/06/2024 7:57 AM BMI - 37.737 kg/m2 (high), Height - 66 in, Weight - 233.8 lbs, Temperature - 96.7 f, Pulse - 67 /min, Respiration - 16 /min, O2 Sat - 97 %, Pain - 0, Fatigue - 0 and BP - 123/ 79 mm(hg). Physical Exam: No changes on exam will continue Imaging: Radiation therapy imaging related to accurate target localization (i.e. KV, MV and CBCT) was reviewed. Appropriate changes, if any, were made to ensure treatment accuracy. Plan: Will continue with her treatments as planned Signed by: Dr. Aileen Acosta 12/06/2024 8:35:22 AM
[2024-12-13 09:01] LABS: Basophils % 0.7 %; Eosinophils % 1.5 %; Lymphocytes # 0.4 10^3/uL (0.8-4.8); Lymphocytes % 13.1 %; Mean Corpuscular HGB Conc 32.7 g/dL (30-55); Mean Corpuscular Hemoglobin 33.2 pg (27-33); Mean Corpuscular Volume 101.4 fl (85-98); Mean Platelet Volume 11.9 fL (7.4-10.4); Monocytes # 0.3 10^3/uL (0.2-0.9); Monocytes % 10.1 %; Neutrophils # 1.98 10^3/uL (1.8-7.7); Neutrophils % 74.2 %; Nucleated Red Blood Cells % 0 %; Platelet Count 64 10^3/cmm (157-399); Red Blood Count 4.34 10^6/uL (3.85-5.65); Red Cell Distribution Width 16.5 % (12.1-15.1); White Blood Count 2.67 10^3/uL (3.29-11.43)
[2024-12-13 09:12] LABS: Alanine Aminotransferase 50 U/L (0-33); Albumin Level 4.4 g/dL (3.5-5.2); Alkaline Phosphatase 81 U/L (35-105); Anion Gap 13.3 (5-19); Aspartate Amino Transferase 72 U/L (0-32); Blood Urea Nitrogen 6 mg/dL (8-23); Calcium 10.2 mg/dL (8.5-10.5); Carbon Dioxide 26 mmol/L (22-29); Chloride 102 mmol/L (98-107); Creatinine Clr Calc Pharmacy 119.7642; Globulin 3.1 g/dL (1.3-4.6); Glomerular Filtration Rate 101.3 mL/min (90-130); Glucose 81 mg/dL (65-115); Osmolality Calculated 281 mOsm/kg (285-295); Potassium 4.3 mmol/L (3.5-5.1); Sodium 137 mmol/L (136-145); Total Bilirubin 0.8 mg/dL (0.15-1.2); Total Protein 7.5 g/dL (6.6-8.7)
--- NOTE | 2024-12-13 10:00 | ONCRAD TMN_ITS ---
Radiation Oncology Weekly Treatment Management Patient: Leandro Dominique> MR#: [id number] : 1960> Attending Physician: Dr. Aileen Acosta Date of Service: 12/13/2024 Fractions: 18 out of 25 Referring Physician(s) : Diagnosis: C20 - Malignant neoplasm of rectum, Diagnosed 07/14/2024 (Active) D69.6 - Thrombocytopenia, unspecified, Diagnosed 02/05/2022 (Active) Radiotherapy to date: Course: rectum/pelvis, Treatment Site: [id number], Ref. ID: [id number], Energy: 15X, Dose/Fx (cGy): 200, #Fx: 25, Dose Correction (cGy): 0, Total Dose Delivered (cGy): 3,600, Start Date: 11/14/2024, dElapsed Days: 29 Reason for visit: The patient is being seen today as part of their regularly scheduled weekly on treatment visits to assess for acute toxicities from radiotherapy. Review of Systems: Patient has had some increased pain with bowel movements and soreness when she sits Vital Signs: Performed on 12/13/2024 8:46 AM BMI - 37.188 kg/m2 (high), Height - 66 in, Weight - 230.4 lbs, Temperature - 96.2 f, Pulse - 68 /min, Respiration - 18 /min, O2 Sat - 98 %, Pain - 5, Fatigue - 10 and BP - 124/ 81 mm(hg). Physical Exam: On exam the skin around her anal opening has become very hyperpigmented Imaging: Radiation therapy imaging related to accurate target localization (i.e. KV, MV and CBCT) was reviewed. Appropriate changes, if any, were made to ensure treatment accuracy. Plan: I have asked this point to put hydrocortisone cream on the area. She can continue to use her Desitin as well. Will continue with her treatments as planned. She will continue on her MiraLAX and her Colace. Signed by: Dr. Aileen Acosta 12/13/2024 9:58:46 AM
[2024-12-13 10:43] LABS: Carcinoembryonic Antigen 3.1 ng/mL (0.0-4.7)
== END 2024-12-19 15:08 | disposition home or self-care (01) ==
PROVIDERS: Internal Medicine Medical Oncology; Nurse Practitioner Family; PCP Registered Nurse; Visit Provider Radiology Radiation Oncology
DX: Z51.0 Encounter for antineoplastic radiation therapy (principal); C20 Malignant neoplasm of rectum
CPT/HCPCS: 36415; 77336; 77386; 80053; 82378; 85025

== ENCOUNTER 2024-12-23 07:36 | Oncology outpatient (recurring) (ONCR) | payer OTHER, SELFPAY ==
--- NOTE | 2024-12-20 08:57 | ONCRAD TMN_ITS ---
Radiation Oncology Weekly Treatment Management Patient: Catina Reeves#: [id number] : 1960 Attending Physician: Dr. Aileen Acosta Date of Service: 12/20/2024 Fractions: 22 out of 25 Referring Physician(s) : Diagnosis: C20 - Malignant neoplasm of rectum, Diagnosed 07/14/2024 (Active) D69.6 - Thrombocytopenia, unspecified, Diagnosed 02/05/2022 (Active) Radiotherapy to date: Course: rectum/pelvis, Treatment Site: [id number], Ref. ID: [id number], Energy: 15X, Dose/Fx (cGy): 200, #Fx: , Dose Correction (cGy): 0, Total Dose Delivered (cGy): 4,400, Start Date: 11/14/2024, Elapsed Days: 36 Reason for visit: The patient is being seen today as part of their regularly scheduled weekly on treatment visits to assess for acute toxicities from radiotherapy. Review of Systems: Patient is doing well. Her pain is at about a 2 on the scale. She is using her cortisone cream and Desitin with good relief Vital Signs: Performed on 12/20/2024 7:52 AM BMI - 37.285 kg/m2 (high), Height - 66 in, Weight - 231 lbs, Temperature - 97.5 f, Pulse - 60 /min, Respiration - 17 /min, O2 Sat - 96 %, Pain - 3, Fatigue - 0 and BP - 138/ 82 mm(hg). Physical Exam: No changes on exam Imaging: Radiation therapy imaging related to accurate target localization (i.e. KV, MV and CBCT) was reviewed. Appropriate changes, if any, were made to ensure treatment accuracy. Plan: Will continue with her treatments as planned. We talked about getting her an appointment in about 4 to 5 weeks with her surgeon. Will have her return in a month when she completes her treatment. Signed by: Dr. Aileen Acosta 12/20/2024 8:55:58 AM
[2024-12-20 09:29] LABS: Basophils % 0.3 %; Eosinophils # 0.1 10^3/uL (0.0-0.8); Eosinophils % 2.6 %; Hematocrit 41.1 % (36-47); Lymphocytes # 0.4 10^3/uL (0.8-4.8); Lymphocytes % 10.9 %; Mean Corpuscular HGB Conc 33.1 g/dL (30-55); Mean Corpuscular Hemoglobin 33.5 pg (27-33); Mean Corpuscular Volume 101.2 fl (85-98); Mean Platelet Volume 10.9 fL (7.4-10.4); Monocytes # 0.5 10^3/uL (0.2-0.9); Monocytes % 13.5 %; Neutrophils # 2.46 10^3/uL (1.8-7.7); Neutrophils % 72.4 %; Nucleated Red Blood Cells % 0 %; Platelet Count 68 10^3/cmm (157-399); Red Blood Count 4.06 10^6/uL (3.85-5.65); Red Cell Distribution Width 16.8 % (12.1-15.1)
[2024-12-20 09:54] LABS: Alanine Aminotransferase 50 U/L (0-33); Albumin Level 4.1 g/dL (3.5-5.2); Alkaline Phosphatase 71 U/L (35-105); Aspartate Amino Transferase 72 U/L (0-32); Blood Urea Nitrogen 6 mg/dL (8-23); Calcium 9.6 mg/dL (8.5-10.5); Carbon Dioxide 24 mmol/L (22-29); Chloride 101 mmol/L (98-107); Globulin 2.5 g/dL (1.3-4.6); Glomerular Filtration Rate 101.3 mL/min (90-130); Glucose 94 mg/dL (65-115); Osmolality Calculated 279 mOsm/kg (285-295); Sodium 136 mmol/L (136-145); Total Bilirubin 0.8 mg/dL (0.15-1.2); Total Protein 6.6 g/dL (6.6-8.7)
[2024-12-20 10:02] LABS: Carcinoembryonic Antigen 2.8 ng/mL (0.0-4.7)
--- NOTE | 2024-12-26 08:45 | N.ONRD TS_ITS ---
Radiation Oncology Treatment Summary Patient: Catina Reeves MR#: [id number] : 1960 Age: 64 Sex: Female Dictated by: Dr. Aileen Acosta Date of Service: 12/23/2024 Referring Physician(s) : Diagnosis: C20 - Malignant neoplasm of rectum, Diagnosed 07/14/2024 (Active) D69.6 - Thrombocytopenia, unspecified, Diagnosed 02/05/2022 (Active) Radiotherapy to Date: Course: rectum/pelvis, Treatment Site: [id number], Ref. ID: [id number], Energy: 15X, Dose/Fx (cGy): 200, #Fx: 25 / 25, Dose Correction (cGy): 0, Total Dose Delivered (cGy): 5,000, Start Date: 11/14/2024, End Date: 12/23/2024, Elapsed Days: 39 Clinical Summary: The patient tolerated RT well. She initially had issues with a blood clot and phlebitis in her arm where her port was. She otherwise tolerated the radiation and chemotherapy well. She was able to manage her bowel movements without issue. She did have a moist desquamation across the perineum. When she began using cortisone cream and Desitin for this this resolved. Plan: End of treatment today. Continue on the above medication until the skin reaction resolves. Follow up in one month. Signed by: Dr. Aileen Acosta>12/26/2024 8:44:43 AM <<Signature on File>>
== END 2024-12-23 23:59 | disposition home or self-care (01) ==
PROVIDERS: Internal Medicine Medical Oncology; Nurse Practitioner Family; PCP Registered Nurse; Visit Provider Radiology Radiation Oncology
DX: Z51.0 Encounter for antineoplastic radiation therapy (principal); C20 Malignant neoplasm of rectum
CPT/HCPCS: 36415; 77336; 77386; 80053; 82378; 85025

== ENCOUNTER → 2025-01-06 15:45 | Outpatient (BNVA) | payer OTHER, SELFPAY | PROVIDERS: PCP Registered Nurse; Visit Provider Nurse Practitioner Family | DX: R68.89 Other general symptoms and signs (principal) | CPT/HCPCS: 87400 ==

== ENCOUNTER 2025-01-19 08:00 | Oncology outpatient (recurring) (ONCR) | payer OTHER, SELFPAY ==
--- NOTE | 2025-01-19 08:49 | ONCRAD EPV_ITS ---
Radiation Oncology Established Patient Visit Patient: Geovanna Dominique [id number] : 1960> Age: 64> Sex: Female> Dictated by: Marcus Fine DO/DIPIKA/NASRIN Date of Service: 01/19/2025 Referring Physician(s) : GEOVANNA Diagnosis: C20 - Malignant neoplasm of rectum, Diagnosed 07/14/2024 (Active) D69.6 - Thrombocytopenia, unspecified, Diagnosed 02/05/2022 (Active) STAGE: T2N2N0 ICD-10: C20, C77.2 Radiotherapy to Date: Course: rectum/pelvis, Treatment Site: [id number], Ref. ID: [id number], Energy: 15X, Dose/Fx (cGy): 200, #Fx: / , Dose Correction (cGy): 0, Total Dose Delivered (cGy): 5,000, Start Date: 11/14/2024, End Date: 12/23/2024, Elapsed Days: 39 Current History: This is a pleasant 64-year-old female who has undergone neoadjuvant chemo followed by chemo radiation completing this on 12/23/2024. She received a total dose of 5000 cGy in 25 fractions over 39 elapsed days completing this again on 12/23/2024. She has a follow-up with Dr. Reeves in [place] on 01/24/2025. Patient states she is able to have better bowel movements but not completely like she is used to. She denies any blood in the urine or blood in the stool. Current Medications: Lipitor, lisinopril-hydroCHLOROthiazide, meloxicam, prempro. Allergies: Penicillins, Erythromycin, Sulfa Antibiotics, Percocet and predniSONE. Current Complaints / Review of Systems: As above. Vital Signs: Performed on 01/19/2025 7:52 AM BMI - 35.477 kg/m2 (high), Height - 66 in, Weight - 219.8 lbs, Temperature - 96.6 f, Pulse - 63 /min, Respiration - 18 /min, O2 Sat - 98 %, Pain - 0, Fatigue - 0 and BP - 134/ 80 mm(hg). Physical Exam: General: Alert and oriented x 3. No acute distress. HEENT: Normocephalic, atraumatic. Extraocular Movements Intact: Pupils Equal, Round, Reactive to Light and Accommodation: Sclerae anicteric. Oral cavity is clear without lesions, masses or ulcers. NECK: Supple without supraclavicular or jugular lymphadenopathy. LUNGS: Clear to auscultation bilaterally without rales, rhonchi or wheeze. HEART: Regular rate and rhythm, normal S1 and S2 without murmur, gallop or rub. MUSCULOSKELETAL: No tenderness or percussion pain over the axial skeleton, scapulae or pelvis. ABDOMEN: Soft, nontender, nondistended without masses or organomegaly. Bowell sounds are present. /GI: MOSES's was performed the state. Normal female external genitalia for age with hyperpigmentation noted from XRT. No skin breakdown. Rectal exam shows no palpable masses. Sphincter tone adequate. No blood per exam glove. EXTREMITIES: No peripheral edema is identified. Limited motor and sensory examination are grossly intact and symmetric bilaterally. NEUROLOGIC: Cranial nerves II ???XII are grossly intact. Normal sensation, strength 5/5 in all extremities, normal gait, no ataxia. Performance Status: Lab: Labs on 12/23/2024 show white count of 3.4 RBC of 4.0 hemoglobin 13.6 hematocrit 41.1 platelets of 68,000. Pathology: Primary, c20 - malignant neoplasm of rectum, Diagnosed 07/14/2024 (active) and Primary, d69.6 - thrombocytopenia, unspecified, Diagnosed 02/05/2022 (active) . Imaging: See HPI Impression: Good clinical response from combined chemoradiation therapy. Patient to see colorectal surgeon on 01/24/2025 in [place]. We will see the patient in 3 months during the week of or sooner if need be. The send the dictation Signed by: 01/19/2025 8:47:48 AM <<Signature on File>> Time spent with patient: 35MINUTES Patient within the 3-month global billing. At this time. CPT Code: * CPT Code: *
== END 2025-01-20 23:59 | disposition home or self-care (01) ==
LOC: ONCMED 08:01
PROVIDERS: PCP Registered Nurse; Visit Provider Radiology Radiation Oncology
DX: Z53.9 Procedure and treatment not carried out, unspecified reason (principal)

== ENCOUNTER → 2025-02-08 16:15 | Outpatient (BNVA) | payer OTHER, SELFPAY | PROVIDERS: PCP Physician Assistant; Visit Provider Nurse Practitioner Women's Health | DX: Z78.0 Asymptomatic menopausal state (principal) | CPT/HCPCS: 82306; 84443 ==

== ENCOUNTER 2025-02-13 15:26 | Outpatient (CLI) | payer OTHER, SELFPAY ==
--- NOTE | 2025-02-13 15:30 | XR_ITS ---
WS: [id number] SCREENING DEXA SCAN [employer] CLINICAL INFORMATION: Z78.0 - Asymptomatic menopausal state COMPARISON: None. FINDINGS: The L1-L4 bone mineral density measures 1.373 g/cm2. This corresponds to a T score score of 1.6 and Z score of 1.8. Left femoral neck bone mineral density measures 1.172 g/cm2. This corresponds to a T score of 1.3 and Z score of 1.5. Right femoral neck bone mineral density measures 1.163 g/cm2. This corresponds to a T score 1.2of and Z score of 1.4. Mean femoral neck bone mineral density measures 1.167 g/cm2. This corresponds to a T score of 1.3 and Z score of 1.5. XR/XR DEXA axial skeleton* [id number] IMPRESSION: Normal bone mineralization. Patient's FRAX calculated 10 year probability for major osteoporotic fracture i s 5.7% and osteoporotic hip fracture is 0.1%.
== END 2025-02-13 15:27 | disposition home or self-care (01) ==
PROVIDERS: PCP Physician Assistant; Visit Provider Nurse Practitioner Women's Health
DX: Z78.0 Asymptomatic menopausal state (principal)
CPT/HCPCS: 77080

== ENCOUNTER 2025-05-22 09:09 | Oncology outpatient (recurring) (ONCR) | payer OTHER, SELFPAY ==
[2025-05-15 12:16] LABS: Basophils % 0.8 %; Eosinophils # 0.1 10^3/uL (0.0-0.8); Eosinophils % 4.5 %; Hematocrit 29.5 % (36-47); Lymphocytes # 0.5 10^3/uL (0.8-4.8); Lymphocytes % 18.4 %; Mean Corpuscular HGB Conc 30.5 g/dL (30-55); Mean Corpuscular Hemoglobin 28.4 pg (27-33); Mean Corpuscular Volume 93.1 fl (85-98); Mean Platelet Volume 11.3 fL (7.4-10.4); Monocytes # 0.2 10^3/uL (0.2-0.9); Monocytes % 9.8 %; Neutrophils # 1.61 10^3/uL (1.8-7.7); Neutrophils % 66.1 %; Nucleated Red Blood Cells % 0 %; Platelet Count 92 10^3/cmm (157-399); Red Blood Count 3.17 10^6/uL (3.85-5.65); Red Cell Distribution Width 14.9 % (12.1-15.1); White Blood Count 2.44 10^3/uL (3.29-11.43)
[2025-05-15 13:00] LABS: 25 Hydroxy Vitamin D 31 ng/mL (30-100); Alanine Aminotransferase 15 U/L (0-33); Alkaline Phosphatase 72 U/L (35-105); Anion Gap 16.9 (5-19); Aspartate Amino Transferase 26 U/L (0-32); Blood Urea Nitrogen 7 mg/dL (8-23); Calcium 9.4 mg/dL (8.5-10.5); Carbon Dioxide 22 mmol/L (22-29); Chloride 105 mmol/L (98-107); Globulin 2.8 g/dL (1.3-4.6); Glomerular Filtration Rate 101.3 mL/min (90-130); Glucose 88 mg/dL (65-115); Osmolality Calculated 287 mOsm/kg (285-295); Potassium 3.9 mmol/L (3.5-5.1); Sodium 140 mmol/L (136-145); Total Bilirubin 0.6 mg/dL (0.15-1.2); Total Protein 6.8 g/dL (6.6-8.7)
== END 2025-05-22 23:59 | disposition home or self-care (01) ==
PROVIDERS: Visit Provider Internal Medicine Medical Oncology
DX: Z53.9 Procedure and treatment not carried out, unspecified reason (principal)
CPT/HCPCS: 36415; 80053; 82306; 85025

== ENCOUNTER 2025-08-21 13:00 | Oncology outpatient (recurring) (ONCR) | payer OTHER, SELFPAY ==
--- NOTE | 2025-08-15 12:30 | CT_ITS ---
WS: [id number] CT CHEST, ABDOMEN AND PELVIS WITH CONTRAST HISTORY: rectal adenocarcinoma TECHNIQUE: Contiguous 5 mm axial imaging performed through the chest, abdomen and pelvis with IV contrast, oral contrast has been provided. Coronal and sagittal reformats chest. Coronal and sagittal reformats through the abdomen and pelvis. All CT scans at [facility] use at least one of these dose optimization techniques: automated exposure control; mA and/or kV adjustment per patient size (includes targeted exams where dose is matched to clinical indication); or iterative reconstruction. CONTRAST: Omnipaque 350; 100 mL IV. DLP: 1291.33 mGy.cm COMPARISON: 06/30/[address]: No pulmonary mass or nodule. There are a few benign calcified granulomata within the lungs. No pneumonia. Normal size heart. Mild atherosclerosis aorta. Normal size pulmonary artery. No mediastinal or hilar adenopathy. 5 mm nodule RIGHT thyroid. No axillary lymph nodes. Cervical spondylosis. No destructive bone lesions. Abdomen CT: Cirrhotic liver. No liver mass or bile duct dilatation. Normal gallbladder. Spleen is slightly enlarged at 13.4 cm. Splenic varices are noted. Normal portal vein. Normal pancreas and adrenal glands. No renal obstruction or solid mass. Tiny cortical hypodensities in each kidney are too small to characterize. Mild atherosclerosis aorta. Small hiatal hernia. Normally distended stomach. No small bowel obstruction. Partial distal colectomy. LEFT lower quadrant colostomy. Pelvic CT: No free fluid or adenopathy in the pelvis. Urinary bladder is not distended. Mild degenerative disc disease at L5-S1. No destructive bone lesions. CT/CT chest abdpel w/*[id number] IMPRESSION: 1. No evidence for metastatic disease to the lungs. 2. No adenopathy in the chest, abdomen or pelvis. 3. Partial colectomy. LEFT lower quadrant colostomy. 4. Cirrhotic liver. 5. Spleen is top normal size at 13.4 cm in length. 6. No ascites.
[2025-08-15] MEDS: iohexol 350 mg/mL 500 mL Btl (per mL) PO (12:35)
[2025-08-15] MEDS: iohexol 350 mg/mL 500 mL Btl (per mL) IV (12:50)
[2025-08-15 13:47] LABS: Blood Urea Nitrogen 6 mg/dL (8-23)
[2025-08-21 13:23] LABS: Hematocrit 39.9 % (36-47); Hemoglobin 12.00 g/dL (11.27-16.99); Mean Corpuscular HGB Conc 30.1 g/dL (30-55); Mean Corpuscular Hemoglobin 26.1 pg (27-33); Mean Corpuscular Volume 86.9 fl (85-98); Nucleated Red Blood Cells % 0 %; Platelet Count 58 10^3/cmm (157-399); Red Blood Count 4.59 10^6/uL (3.85-5.65); White Blood Count 2.48 10^3/uL (3.29-11.43)
[2025-08-21 13:50] LABS: Carcinoembryonic Antigen 2.3 ng/mL (0.0-4.7)
[2025-08-21 14:01] LABS: Alanine Aminotransferase 29 U/L (0-33); Albumin Level 3.9 g/dL (3.5-5.2); Alkaline Phosphatase 81 U/L (35-105); Blood Urea Nitrogen 8 mg/dL (8-23); Calcium 9.5 mg/dL (8.5-10.5); Carbon Dioxide 23 mmol/L (22-29); Chloride 103 mmol/L (98-107); Globulin 3.0 g/dL (1.3-4.6); Glucose 100 mg/dL (65-115); Osmolality Calculated 284 mOsm/kg (285-295); Sodium 138 mmol/L (136-145); Total Protein 6.9 g/dL (6.6-8.7)
[2025-08-21 14:06] LABS: Anion Gap 16.0 (5-19); Aspartate Amino Transferase 52 U/L (0-32); Potassium 4.0 mmol/L (3.5-5.1)
== END 2025-08-22 23:59 | disposition home or self-care (01) ==
PROVIDERS: Internal Medicine; Visit Provider Internal Medicine Medical Oncology
DX: C20 Malignant neoplasm of rectum; Z53.9 Procedure and treatment not carried out, unspecified reason
CPT/HCPCS: 36415; 71260; 74177; 80053; 82378; 82565; 84520; 85025

== ENCOUNTER 2025-10-31 14:49 | Outpatient (CLI) | payer OTHER, SELFPAY ==
--- NOTE | 2025-10-31 14:55 | MM_ITS ---
WS: [id number] BILATERAL 3D TOMOSYNTHESIS DIGITAL SCREENING MAMMOGRAPHY WITH CAD CLINICAL INFORMATION: Z12.31 - Encounter for screening mammogram for malignant ... HISTORY: Screening mammogram. No current complaints. COMPARISON: 2023 TECHNIQUE: Bilateral CC and MLO views. FINDINGS: Scattered fibroglandular densities bilaterally. No suspicious focal mass, asymmetry, calcifications, or architectural distortion. No evidence of malignancy. MM/MM scr tomosynthesis [id number] IMPRESSION: DENSITY: There are scattered areas of fibroglandular density. BI-RADS: 1 - Negative. FOLLOW UP: 1 Year Follow-up Recommend return to annual screening mammography.
== END 2025-10-31 14:50 | disposition home or self-care (01) ==
LOC: RAD 14:51
PROVIDERS: PCP Nurse Practitioner Women's Health; Visit Provider Nurse Practitioner Women's Health
DX: Z12.31 Encounter for screening mammogram for malignant neoplasm of breast (principal); R92.323 Mammographic fibroglandular density, bilateral breasts
CPT/HCPCS: 77063; 77067

== ENCOUNTER 2025-11-20 11:24 | Oncology outpatient (recurring) (ONCR) | payer OTHER, SELFPAY ==
[2025-11-13] MEDS: iohexol 350 mg/mL 500 mL Btl (per mL) PO (10:05)
--- NOTE | 2025-11-13 10:30 | CT_ITS ---
WS: [id number] CT CHEST, ABDOMEN AND PELVIS WITH CONTRAST HISTORY: rectal adenocarcinoma TECHNIQUE: Contiguous 5 mm axial imaging performed through the chest, abdomen and pelvis with IV contrast, oral contrast has been provided. Coronal and sagittal reformats chest. Coronal and sagittal reformats through the abdomen and pelvis. All CT scans at [facility] use at least one of these dose optimization techniques: automated exposure control; mA and/or kV adjustment per patient size (includes targeted exams where dose is matched to clinical indication); or iterative reconstruction. CONTRAST: Omnipaque 350; 100 mL IV. DLP: 1320.89 mGy.cm COMPARISON: 08/15/2025, 06/30/[address]: No pulmonary mass, nodule or pneumonia. There is a 2 mm micronodule in the lingula. Benign granuloma LEFT upper lobe. No mediastinal or hilar adenopathy. Normal pulmonary artery and aorta. Heart is mildly enlarged. No pericardial or pleural effusions. No adenopathy. 5 mm nodule RIGHT thyroid. Small hiatal hernia. Bovine arch. Abdomen CT: Cirrhotic liver. No intrahepatic mass or duct dilatation. Normal portal vein. Normal size spleen at 12.6 cm. Normal gallbladder. Normal pancreas and common bile duct. No adrenal mass. Too small to characterize hypodensity RIGHT kidney. No renal obstruction. Mild atherosclerosis aorta. No GI tract obstruction. Partial colectomy. LEFT lower quadrant colostomy site. There is a small amount of fluid noted at the peritoneum associated with the anus. This is collection curves to the soft tissue and was present on the study of 08/15/2025. Pelvic CT: Well-distended urinary bladder. Status post hysterectomy. No pelvic mass or adenopathy. There is a small amount of fluid noted near the anus that was present on the prior study and may be postsurgical in etiology. No destructive bone lesions. Degenerative disc disease at L5-S1. CT/CT chest abdpel w/*[id number] IMPRESSION: 1. Status post partial colectomy. 2. LEFT lower quadrant colostomy site. No obstruction. 3. There is a small amount of fluid at the perineum close associated with the anus. This may be normal postoperative change. Similar to the prior study. 4. Cirrhotic liver. 5. Normal size spleen. 6. No ascites or adenopathy. 7. No metastatic sites within the liver or lungs.
[2025-11-13] MEDS: iohexol 350 mg/mL 500 mL Btl (per mL) IV (11:18)
[2025-11-13 11:22] LABS: Blood Urea Nitrogen 9 mg/dL (8-23)
[2025-11-20 12:04] LABS: Hematocrit 37.0 % (36-47); Hemoglobin 11.90 g/dL (11.27-16.99); Mean Corpuscular HGB Conc 32.2 g/dL (30-55); Mean Corpuscular Hemoglobin 29.1 pg (27-33); Mean Corpuscular Volume 90.5 fl (85-98); Nucleated Red Blood Cells % 0 %; Platelet Count 49 10^3/cmm (157-399); Red Blood Count 4.09 10^6/uL (3.85-5.65); White Blood Count 2.07 10^3/uL (3.29-11.43)
[2025-11-20 12:36] LABS: Carcinoembryonic Antigen 2.2 ng/mL (0.0-4.7)
[2025-11-20 12:48] LABS: Alanine Aminotransferase 23 U/L (0-33); Albumin Level 4.1 g/dL (3.5-5.2); Alkaline Phosphatase 70 U/L (35-105); Anion Gap 13.9 (5-19); Aspartate Amino Transferase 36 U/L (0-32); Blood Urea Nitrogen 11 mg/dL (8-23); Calcium 9.3 mg/dL (8.5-10.5); Carbon Dioxide 22 mmol/L (22-29); Chloride 105 mmol/L (98-107); Globulin 2.5 g/dL (1.3-4.6); Glucose 96 mg/dL (65-115); Osmolality Calculated 283 mOsm/kg (285-295); Potassium 3.9 mmol/L (3.5-5.1); Sodium 137 mmol/L (136-145); Total Protein 6.6 g/dL (6.6-8.7)
== END 2025-11-22 23:59 | disposition home or self-care (01) ==
PROVIDERS: Absent Provider Registered Nurse; PCP Nurse Practitioner Women's Health; Visit Provider Internal Medicine Medical Oncology
DX: E55.9 Vitamin D deficiency, unspecified; Z53.9 Procedure and treatment not carried out, unspecified reason
CPT/HCPCS: 71260; 74177; 80053; 82378; 82565; 84520; 85025